=== PATIENT | female | born 1965 | race Caucasian/White ===

== ENCOUNTER 2016-03-08 15:01 | Day surgery (SDC) | payer MEDICAID ==
[~2016-03-08] VITALS: Ht 152.4 cm; Wt 68.0 kg
[~2016-03-08 15:01] MED LIST: ADVAIR DISKUS 21 DSK IH; ALBUTEROL-200 PUFFS/ IH; AMOXICILLIN AND1 TER PO; ATIVAN0.5 MG PO; ATIVAN1 M1 OR; ATIVAN2 MG PO; AUGMENTIN 875-1 EACH PO; AUGMENTIN1 TA2 PO; BACTRIM DS 8001 TA1 PO; BUDESONIDE0.5 MG/2 M IH; CIPRO 500MG TA500 MG PO; CLARITIN 10MG T10 MG PO; CLARITIN-D1 T12 PO; CLARITIN10 MG PO; DICLOFENAC 50MG50 MG PO; DICLOFENAC POTA50 MG PO; DUONEB 3 MG/3 ML3 ML IH; FLOVENT 11110 MCG/PU IH; HYDROCODONE-APA1 TA1 PO; KEFLEX 500MG.500 MG PO; LEVAQUIN 750 M750 MG PO; LEVAQUIN500 MG PO; LEXAPRO 10 MG T10 MG PO; MECLIZINE HYDRO25 MG PO; MEDROL 4MG. DOSE4 MG PO; MEDROL DOSEPAK4 MG PO; OMEPRAZOLE40 MG PO; POTASSIUM CHLO10 ME3 PO; PREDNISONE 20MG20 MG PO; PREDNISONE50 MG PO; PROAIR HFA0.09 MG/AC IH; SINGULAIR10 MG PO; STIOLTO RESPIMA1 SPR IH; SUCRALFATE 1GM T1 GM PO; TESSALON PERLE100 MG PO; TIZANIDINE4 MG NG; TRAMADOL 50MG T50 MG PO; TRAMADOL50 M1 PO; WALK5 XX; ZANAFLEX2 M1 PO; ZITHROMAX 250M250 MG PO; ZITHROMAX Z PA250 MG PO; ZITHROMAX Z-PA250 M1 PO; Zithromax500 MG PO
[2016-03-08 15:11] VITALS: BP 121/81
[2016-03-08] MEDS ORDERED: AZITHROMYCIN250 MG PO (15:20)
[2016-03-08 15:25] VITALS: BP 121/81
[2016-03-08 15:27] VITALS: BP 121/81
--- NOTE | 2016-03-08 15:34 | Procedure Note ---
Procedure detail Date of procedure: 03/08/16 Anesthesiologist: Ric melissa CRNA Complications: None Pre-procedure diagnosis: Myofascial pain syndrome lumbar paraspinal muscles bilaterally. Post-procedure diagnosis: Same. Indications for procedure: Patient's a very pleasant 50-year-old white female were treating her pain clinic for myofascial pain syndrome lumbar spine. She status post 2 rounds of lumbar paraspinous muscle trigger point injections. She reports 80 percent improvement terms her low back pain after receiving the injections. She describes her low back pain as constant, dull, achy at times. She rates her low back pain 6/10. Patient's an receiving another round of trigger point injections and lumbar paraspinous muscles prior to into the year. Patient presents today for another round of lumbar paraspinous muscle trigger point injections bilaterally. Procedure detail: Details of procedure is going to the patient. The patient taken to the procedure room where noninvasive monitors were placed including noninvasive blood pressure cuff as well as pulse oximeter. She was placed in the sitting position. The area of the lumbar spine was cleansed using chlorhexidine as a cleansing solution. Markers were placed at 3 separate locations on the paraspinous muscles in the lumbar region bilaterally. Using a solution of 0.25 percent Marcaine +1 percent lidocaine and 40 mg of Depo-Medrol 2 mL were injected at each marker site. Patient all the procedure without difficulty. There are no complications. Plan and disposition: Patient in follow-up [facility] pain clinic further evaluation. She was reevaluated 15 minutes postprocedure. Patient reports 75 percent improvement terms of her lumbar back pain. at [id number]
[2016-03-08 15:36] VITALS: BP 121/80
[2016-04-26] MEDS ORDERED: PREDNISONE 10MG10 MG PO (19:05)
[2016-04-26] MEDS ORDERED: DOXYCYCLINE HY100 M4 PO (19:05)
== END 2016-03-08 15:36 | disposition home or self-care (01) ==
LOC: PM 15:01
PROC: 3E0233Z Introduction of Anti-inflammatory into Muscle, Percutaneous Approach (ICD-10-PCS; principal; 2016-03-08)
PROC: 3E023BZ Introduction of Anesthetic Agent into Muscle, Percutaneous Approach (ICD-10-PCS; 2016-03-08)
DX: M60.88 Other myositis, other site (principal)
CPT/HCPCS: J1040

== ENCOUNTER → 2016-10-21 | Outpatient (CLI) | payer MEDICAID ==
[~2016-10-21] MED LIST changes: +AZITHROMYCIN250 MG PO; +DALIRESP500 MCG PO; +DELTASONE20 MG FT; +DOXYCYCLINE HY100 M4 PO; +PREDNISONE 10MG10 MG PO
--- NOTE | 2016-10-22 07:33 | RADIOLOGY REPORT PS360 ---
CT CHEST W/WO CONTRAST HISTORY: COPD,SHORTNESS OF BREATH ORDERING PHYSICIAN: Maureen Sotelo APRN PATIENT AGE: 51 years TECHNIQUE: Helical acquisition obtained without and following the intravenous administration of 75 mL of Isovue 370 .. Axial, sagittal, and coronal reformatted images are generated and reviewed. COMPARISON: 09/08/2015 FINDINGS: No mediastinal or hilar mass evident. There is there is mild thickening of the pericardium anteriorly not significantly changed. There are coronary artery calcifications. There are scattered calcified granulomas. Mild centrilobular emphysematous change/COPD. Scattered fibrotic/atelectatic changes are present. No lobar consolidation or collapse. No effusions. No central bronchial lesions evident. There are old bilateral rib fractures. Wedge compression changes involving T6 and T7 which have developed in the interval. Mild chronic wedge compression changes involving the upper lumbar spine. IMPRESSION: 1. COPD/mild centrilobular emphysematous change with scattered areas of pulmonary fibrosis and/or atelectasis slightly increased on the right. 2. Mild wedge compression changes of T6 and T7 which have developed in the interval. MRI may further evaluate if clinically warranted. 3. Coronary artery disease. 4. Old bilateral rib fractures
== END ==
LOC: RAD 09:18
DX: J44.9 Chronic obstructive pulmonary disease, unspecified (principal); R06.02 Shortness of breath
CPT/HCPCS: Q9967

== ENCOUNTER → 2016-12-06 | Day surgery (SDC) | payer MEDICAID ==
[~2016-12-06] VITALS: Ht 152.4 cm; Wt 68.0 kg
[2016-12-06 15:44] VITALS: BP 112/78
[2016-12-06 16:15] VITALS: BP 112/78
[2016-12-06 16:17] VITALS: BP 112/78
[2016-12-06 16:24] VITALS: BP 118/75
--- NOTE | 2016-12-06 16:29 | Procedure Note ---
Procedure detail Date of procedure: 12/06/16 Anesthesiologist: Ric Clark Complications: None Pre-procedure diagnosis: Myofascial pain syndrome. Thoracic paraspinous muscles bilaterally. Post-procedure diagnosis: Same. Indications for procedure: Very pleasant 51-year-old white female that we've been treating for myofascial pain syndrome for quite some time in the lumbar and thoracic spine. Today she presents to the procedure area for trigger point injections of the thoracic paraspinous muscles bilaterally. Procedure detail: Details of the procedure expected the patient. Patient taken to procedure room placed in the sitting position. Noninvasive monitors were applied including noninvasive blood pressure cuff as well as Pulsoxymeter. The area over the thoracic spine was cleansed using chlorhexidine as cleansing solution. 3 separate markers were placed on the bilateral thoracic paraspinous muscles. Using a 22-gauge needle to muscle was injected with 2 mL at each marker using a solution containing 0.5 percent Marcaine and 1 percent lidocaine and 40 mg Depo- Medrol. Plan and disposition: Patient was reevaluated 10 minutes post procedure. She is doing very well. She is reporting little pain in the thoracic spine area. She will return to see us for further evaluation. at [id number]
== END ==
LOC: PM 15:04
PROC: 3E0233Z Introduction of Anti-inflammatory into Muscle, Percutaneous Approach (ICD-10-PCS; principal; 2016-12-06)
PROC: 3E023BZ Introduction of Anesthetic Agent into Muscle, Percutaneous Approach (ICD-10-PCS; 2016-12-06)
DX: M79.1 Myalgia (principal); M54.6 Pain in thoracic spine; M62.81 Muscle weakness (generalized)
CPT/HCPCS: J1040

== ENCOUNTER 2017-01-16 09:08 | Inpatient (IN) | payer MEDICAID ==
[~2017-01-16] VITALS: Ht 152.4 cm; Wt 63.5 kg
[2017-01-16] VITALS (7 sets, daily range): BP systolic 119–154; BP diastolic 68–108
--- OUTSIDE RECORDS SUMMARY | 2017-01-16 09:23 | External Medical Summary Rpt | CCD ---
Author Author , CAROL MEDINA Address Unknown Phone [email or web address] ([email or web address]) Care Team Providers Care Setter Induction Heating Equipment Name Role Phone Felicity Ackerman MD, Unavailable Unavailable Felicity Damico MD, Unavailable Unavailable Vinny Damico MD Purpose Continuity of Care Document - 10-30-2012 through 2016 Problems Code Diagnosis DOS Provider Status 305.1 305.1 03-07-2013 [place] TOBACCO USE [facility] 466.19 466.19 AC 03-07-2013 [place] [facility] INFEC Hospital ORG 491.21 491.21 03-07-2013 [facility] CHRONIC Hospital BRONCHITIS, W (ACUTE) EXACERBATIO N 300.00 300.00 10-30-2012 [place] ANXIETY [facility] STATE NOS Hospital 493.90 493.90 10-30-2012 [place] ASTHMA, [facility] UNSPECIFIED Hospital 496 496 CHR 10-30-2012 [place] AIRWAY [facility] NEC 786.09 786.09 10-30-2012 [place] RESPIRATORY [facility] ABNORM NEC Hospital J44.1 CHRONIC OBSTRUCTIVE PULMONARY DISEASE W (ACUTE) EXACERBATIO N J45.909 UNSPECIFIED ASTHMA, UNCOMPLICAT ED R07.9 CHEST PAIN, UNSPECIFIED Allergies, Adverse Reactions, Alerts Type Drug Allergy Propensity to adverse reactions to drug Adverse Reaction to Substance Substance Reaction Severity ASA (aspirin) I-HIVES Unknown Clarithromycin NA-NAUSEA Unknown Theophylline FREAKS OUT Intermediate Medications Na ND Rx Da Fi Fi Am Da Di Ph RX Ph St me C No te ll ll ou ys ag ar # ys at rm s nt no ma ic us Or Da si cy ia de te s n re d FA 51 12 2 No MO 07 -3 TI 90 1- Lo DI 96 20 ng NE 62 13 er 0 20 Ac ti MG ve TA BL ET PA 00 12 2 No ED 05 -3 NI 40 1- Lo SO 01 20 ng NE 72 13 er 0 10 Ac ti MG ve TA BL ET IS 00 12 0 No OV 27 -3 UE 01 0- Lo -3 31 20 ng 70 65 13 er 2 76 Ac % ti IN ve FU S JAMAL TT LE RA 63 12 0 No D- 80 -3 SA 70 0- Lo LI 10 20 ng NE 07 13 er 5A FL Ac US ti H ve 10 ML SY RI NG E SO 00 12 1 No JENNIFER 00 -3 -M 90 0- Lo ED 04 20 ng RO 72 13 er L 2 12 Ac 5 ti MG ve AL Fl 00 12 3 No ut 17 -3 ic 30 0- Lo as 71 20 ng on 92 13 er e 0B Hf Ac a ti 11 ve 0M CG In gómez le r AZ 68 12 4 No IT 08 -2 HR 40 9- Lo OM 27 20 ng YC 80 13 er IN 1 Ac 25 ti 0 ve MG TA BL ET LO 00 12 4 No VE 07 -2 NO 50 9- Lo X 62 20 ng 40 04 13 er 1 MG Ac /0 ti .4 ve ML SY RI NG E CE 00 12 1 No FT 40 -2 RI 97 9- Lo AX 33 20 ng ON 30 13 er E 4 1 Ac GM ti ve AL SO 00 12 1 No DI 40 -2 UM 97 9- Lo 10 20 ng CH 16 13 er LO 6 RI Ac DE ti ve 0. 9% SO LN IP 00 12 5 No RA 48 -2 T- 70 8- Lo AL 20 20 ng BU 10 13 er T 1 0. Ac 5- ti 3( ve 2. 5) MG /3 ML SO 00 12 2 No JENNIFER 00 -2 -M 90 8- Lo ED 04 20 ng RO 72 13 er L 2 12 Ac 5 ti MG ve AL Ib 62 12 5 No up 58 -2 ro 40 8- Lo fe 74 20 ng n 60 13 er 40 1 0M Ac G ti Ta ve bl et SO 00 12 1 No JENNIFER 00 -2 -M 90 7- Lo ED 04 20 ng RO 72 13 er L 2 12 Ac 5 ti MG ve AL AC 00 12 2 No ET 57 -2 YL 40 7- Lo CY [address] 50 13 er EI 0A NE Ac ti 20 ve % 1M L SY R (R T ON 00 12 7 No DA 37 -2 NS 87 6- Lo ET 73 20 ng RO 29 13 er N 3 OD Ac T ti 4 ve MG TA BL ET SO 00 12 1 No JENNIFER 00 -2 -M 90 6- Lo ED 04 20 ng RO 72 13 er L 2 12 Ac 5 ti MG ve AL SO 00 12 0 No DI 40 -2 UM 97 5- Lo 98 20 ng CH 30 13 er LO 9 RI Ac DE ti ve 0. 9% SO JENNIFER TI ON IP 00 12 0 No RA 48 -2 T- 70 5- Lo AL 20 20 ng BU 10 13 er T 1 0. Ac 5- ti 3( ve 2. 5) MG /3 ML Sa 63 12 1 No li 80 -2 ne 70 5- Lo 10 20 ng Fl 07 13 er us 5 h Ac 10 ti ML ve Sy ri ng e SO 00 12 0 No JENNIFER 00 -2 -M 90 5- Lo ED 04 20 ng RO 72 13 er L 2 12 Ac 5 ti MG ve AL LO 00 12 0 No RA 64 -2 ZE 16 5- Lo PA 04 20 ng M 82 13 er 2 5 MG Ac /M ti L ve AL AL 00 12 0 No BU 48 -2 TE 79 5- Lo RO 50 20 ng L 10 13 er CANTU 1 L Ac 2. ti 5 ve MG /[address] 00 12 8 No AI 12 -2 FE 10 5- Lo NE 63 20 ng SI 81 13 er N 0 DM Ac ti SY ve RU P Lo 63 12 8 No ra 73 -2 ze 90 5- Lo pa 15 20 ng m 51 13 er 1M 0 G Ac Ta ti bl ve et PU 00 12 6 No LM 18 -2 IC 61 5- Lo OR 98 20 ng T 90 13 er 0. 4 5 Ac MG ti /2 ve ML RE SP UL E TY 50 12 8 No LE 58 -2 NO 00 5- Lo L 45 20 ng EX 10 13 er -S 3 TR Ac ti 50 [address] ET Sa 63 12 8 No li 80 -2 ne 70 5- Lo 10 20 ng Fl 07 13 er us 5 h Ac 10 ti ML ve Sy ri ng e LO 51 12 8 No RA 07 -2 TA 90 5- Lo DI 24 20 ng NE 62 13 er 0 10 Ac ti MG ve TA BL ET MO 68 12 8 No NT 08 -2 EL 40 5- Lo UK 62 20 ng 00 13 er T 1 SO Ac D ti 10 ve MG TA BL ET MA 00 12 0 No GN 40 -2 ES 96 5- Lo IU 73 20 ng M 01 13 er CANTU 3 LF Ac 4 ti ve G/ 50 ML BA G AZ 00 12 3 No IT 40 -2 HR 90 5- Lo OM 14 20 ng YC 41 13 er IN 1 Ac I. ti V. ve 50 0 MG AL De 00 12 0 No xa 51 -0 me 74 4- Lo th 90 20 ng as 12 13 er on 5 e Ac 4M ti G/ ve Ml Sd v AL 00 12 0 No BU 48 -0 TE 79 4- Lo RO 50 20 ng L 10 13 er CANTU 1 L Ac 2. ti 5 ve MG /[address] AL 00 08 0 No BU 48 -2 TE 79 7- Lo RO 50 20 ng L 10 13 er CANTU 1 L Ac 2. ti 5 ve MG /[address] PA 00 08 0 No ED 05 -2 NI 40 7- Lo SO 01 20 ng NE 82 13 er 0 20 Ac ti MG ve TA BL ET Vital Signs 03-07-2013 15:35 Name Value Interpretat Reference Comment ion Range Body 98.7 [degF] Temperature BP 68 mm[Hg] Diastolic BP Systolic 107 mm[Hg] Heart 78 /min Rate/Pulse O2% 94 % Respiratory 22 /min Rate 02-27-2013 06:13 Name Value Interpretat Reference Comment ion Range Height 152.40 cm Weight 61.462 kg Measured 02-27-2013 04:10 Name Value Interpretat Reference Comment ion Range Body 99.3 [degF] Temperature BP 92 mm[Hg] Diastolic BP Systolic 163 mm[Hg] Heart 141 /min Rate/Pulse O2% 98 % Respiratory 20 /min Rate Weight 0 [oz_av] Measured 02-06-2013 06:26 Name Value Interpretat Reference Comment ion Range Body 97.8 [degF] Temperature BP 66 mm[Hg] Diastolic BP Systolic 106 mm[Hg] Heart 89 /min Rate/Pulse O2% 91 % Respiratory 18 /min Rate 02-06-2013 06:22 Name Value Interpretat Reference Comment ion Range Body 97.8 [degF] Temperature 02-06-2013 05:47 Name Value Interpretat Reference Comment ion Range BP 78 mm[Hg] Diastolic BP Systolic 124 mm[Hg] Heart 99 /min Rate/Pulse O2% 98 % Respiratory 20 /min Rate 10-30-2012 03:40 Name Value Interpretat Reference Comment ion Range Body 98.6 [degF] Temperature BP 77 mm[Hg] Diastolic BP Systolic 112 mm[Hg] Heart 90 /min Rate/Pulse O2% 98 % Respiratory 20 /min Rate 10-30-2012 02:56 Name Value Interpretat Reference Comment ion Range BP 78 mm[Hg] Diastolic BP Systolic 131 mm[Hg] Heart 89 /min Rate/Pulse O2% 94 % Respiratory 20 /min Rate Results Labs Lab Lab Date Result Refere Interp Status Commen Order Detail nces retati t Range on Differential panel, method unspecified - (08-02-2016 21:00) Anisocy 1+ complet tosis 017 ed [Presen 21:00 ce] in Blood LYMPH 9 % 10% - Low complet 017 50% ed 21:00 Platele NORMAL complet ts 017 ed [Presen 21:00 ce] in Blood by Light microsc opy Differential panel, method unspecified - (07-22-2016 10:15) Anisocy 07-22- 1+ complet tosis 017 ed [Presen 10:15 ce] in Blood LYMPH 23 % 10% - Normal complet 017 50% ed 10:15 Platele NORMAL complet ts 017 ed [Presen 10:15 ce] in Blood by Light microsc opy Stomato 1+ complet cytes 017 ed [Presen 10:15 ce] in Blood by Light microsc opy BUN Bld-mCnc (03-04-2013 07:40) BUN 16 7-18 complet Bld-mCn 013 mg/dL ed c 07:40 CREATININE (03-04-2013 07:40) Creat 0.7 0.6-1.0 complet SerPl-m 013 mg/dL ed Cnc 07:40 Creat 97 50-200 complet Cl 013 ML/MIN ed predict 07:40 ed SerPl C-G-vRa te GFR/BSA 90 59- complet .pred 013 ML/MIN ed SerPl 07:40 Schwart z-vRate CBC with AUTO DIFF (03-04-2013 07:40) WBC # 03-04- 9.4 4.8-10. complet Bld 013 K/MM3 8 ed Auto 07:40 RBC # 12-30-2 4.36 4.2-5.4 complet Bld 013 M/mm3 ed Auto 07:40 Hgb 12-30-2 13.2 12.2-16 complet Bld-mCn 013 g/dL .2 ed c 07:40 Hct Fr 12-30-2 40.3 % 37.0-47 complet Bld 013 .0 ed 07:40 MCV RBC 12-30-2 92.3 fl 82.2-97 complet 013 .8 ed 07:40 MCH RBC 12-30-2 30.4 pg 27-31.2 complet Qn 013 ed Auto 07:40 MEAN 12-30-2 32.9 31.8-35 complet CORPUSC 013 g/dl .4 ed ULAR 07:40 HGB CONC RDW RBC 12-30-2 13.2 % 11.5-17 complet Auto 013 .5 ed 07:40 Platele 12-30-2 298 142-424 complet t Bld 013 K/mm3 ed Ql 07:40 Manual MEAN 12-30-2 7.7 fl 7.4-10. complet PLATELE 013 4 ed T 07:40 VOLUME Granulo 12-30-2 82.6 % 37.0-80 complet cytes 013 .0 ed Fr Bld 07:40 Auto LYMPH % 12-30-2 12.2 % 10-50.0 complet 013 ed 07:40 Monocyt 12-30-2 4.8 % 1.7-9.3 complet es Fr 013 ed Bld 07:40 Auto Eosinop 12-30-2 0.2 % 0.1-12. complet hil Fr 013 0 ed Bld 07:40 Auto Basophi 12-30-2 0.2 % 0.1-2.0 complet ls Fr 013 ed Bld 07:40 Auto Granulo 12-30-2 7.7 1.8-7.8 complet cytes # 013 K/mm3 ed Bld 07:40 Auto Lymphoc 12-30-2 1.1 0.7-4.5 complet ytes Fr 013 K/mm3 ed Bld 07:40 Auto Monocyt 12-30-2 0.5 0.1-1.0 complet es # 013 K/mm3 ed Bld 07:40 Auto Eosinop 12-30-2 0.0 0.0-0.4 complet hil # 013 K/mm3 ed Bld 07:40 Auto Basophi 12-30-2 0.0 0-0.2 complet ls # 013 K/MM3 ed Bld 07:40 Auto ARTERIAL BLOOD GAS (03-02-2013 08:52) ARTERIA 7.37 7.35-7. complet L PH 013 MMOL/L 45 ed 08:52 ARTERIA 69.5 35.0-45 complet L PCO2 013 MMHG .0 ed 08:52 ARTERIA 2 60.7 80-100 complet L PO2 013 MMHG ed 08:52 ARTERIA 2 39.1 22.0-26 complet L HCO3 013 MMOL/L .0 ed 08:52 ARTERIA 41.2 23-27 complet L TCO2 013 MMOL/L ed 08:52 Base 13.8 -2.4-+2 complet excess 013 MMOL/L .3 ed BldA-sC 08:52 nc ARTERIA 90.3 % 90-100 complet L O2 013 ed SAT 08:52 OXYGEN 34% complet 013 ed 08:52 Arteria ACCEPTA complet l 013 BLE ed patency 08:52 Wrist a CBC with AUTO DIFF (02-27-2013 08:20) WBC # 02-27-2 9.6 4.8-10. complet Bld 013 K/MM3 8 ed Auto 08:20 WBC 02-27-2 9.5 complet nRBC 013 K/mm3 ed cor # 08:20 Bld Auto RBC # 2 4.26 4.2-5.4 complet Bld 013 M/mm3 ed Auto 08:20 Hgb 2 13.1 12.2-16 complet Bld-mCn 013 g/dL .2 ed c 08:20 Hct Fr 40.0 % 37.0-47 complet Bld 013 .0 ed 08:20 MCV RBC 93.9 fl 82.2-97 complet 013 .8 ed 08:20 MCH RBC 30.6 pg 27-31.2 complet Qn 013 ed Auto 08:20 MEAN 32.6 31.8-35 complet CORPUSC 013 g/dl .4 ed ULAR 08:20 HGB CONC RDW RBC 12-25-2 13.3 % 11.5-17 complet Auto 013 .5 ed 08:20 Platele 12-25-2 221 142-424 complet t Bld 013 K/mm3 ed Ql 08:20 Manual MEAN 25-2 8.3 fl 7.4-10. complet PLATELE 013 4 ed T 08:20 VOLUME Granulo 12-25-2 92.3 % 37.0-80 complet cytes 013 .0 ed Fr Bld 08:20 Auto LYMPH % 12-25-2 4.3 % 10-50.0 complet 013 ed 08:20 Monocyt 12-25-2 3.3 % 1.7-9.3 complet es Fr 013 ed Bld 08:20 Auto Eosinop 12-25-2 0.1 % 0.1-12. complet hil Fr 013 0 ed Bld 08:20 Auto Basophi 12-25-2 0.1 % 0.1-2.0 complet ls Fr 013 ed Bld 08:20 Auto Granulo 12-25-2 8.8 1.8-7.8 complet cytes # 013 K/mm3 ed Bld 08:20 Auto Lymphoc 12-25-2 0.4 0.7-4.5 complet ytes Fr 013 K/mm3 ed Bld 08:20 Auto Monocyt 12-25-2 0.3 0.1-1.0 complet es # 013 K/mm3 ed Bld 08:20 Auto Eosinop 12-25-2 0.0 0.0-0.4 complet hil # 013 K/mm3 ed Bld 08:20 Auto Basophi 12-25-2 0.0 0-0.2 complet ls # 013 K/MM3 ed Bld 08:20 Auto Encounters Encounter Start End Date Code Location Performer Type Date Inpatient SEBASTIEN Ackerman MD (IN) 3 04:27 4 17:00 [facility] Emergency LEEROY Collier MD (ER) 3 04:45 3 06:25 [facility] Emergency LEEROY Ackerman MD (ER) 3 02:29 3 03:53 [facility]
--- OUTSIDE RECORDS SUMMARY | 2017-01-16 09:23 | External Medical Summary Rpt | CCD ---
Author Author , CAROL MEDINA Address Unknown Phone .[facility] Care Team Providers Care Winder Hand Name Role Phone Felicity Ackerman MD, Unavailable Unavailable Felicity Damico MD, Unavailable Unavailable Vinny Damico MD Purpose Continuity of Care Document - 10-30-2012 through 2016 Problems Code Diagnosis DOS Provider Status 305.1 305.1 03-07-2013 [place] TOBACCO USE [facility] 466.19 466.19 AC 03-07-2013 [place] [facility]EC Hospital ORG 491.21 491.21 03-07-2013 [facility] CHRONIC Hospital BRONCHITIS, W (ACUTE) EXACERBATIO N 300.00 300.00 10-30-2012 [place] ANXIETY [facility] STATE NOS Hospital 493.90 493.90 10-30-2012 [place] ASTHMA, [facility] UNSPECIFIED Hospital 496 496 CHR 10-30-2012 [place] AIRWAY [facility] Hospital NEC 786.09 786.09 10-30-2012 [place] RESPIRATORY [facility] ABNORM NEC Hospital J44.1 CHRONIC OBSTRUCTIVE PULMONARY [...] Ac ti MG ve TA BL ET FL 00 12 2 No ED 05 -3 [...] 5 ve MG /[address] FL 00 08 0 No ED 05 -2 [...] Ackerman MD (IN) 3 04:27 4 17:00 [facility] Emergency LEEROY Collier MD (ER) 3 04:45 3 06:25 [facility] Emergency LEEROY Ackerman MD (ER) 3 02:29 3 03:53 [facility]
--- OUTSIDE RECORDS SUMMARY | 2017-01-16 09:24 | External Medical Summary Rpt | CCD ---
Author Author [employer] Organization [employer] Address Unknown Phone Unavailable Purpose Continuity of Care Document - through 2016
--- OUTSIDE RECORDS SUMMARY | 2017-01-16 09:24 | External Medical Summary Rpt | CCD ---
Author Author , CAROL Organization CAROL Address Unknown Phone [email or web address] Immunization Name Date Rout CVX Reac Dose Comm Prov Is Faci e tion ent ider Refu lity Give sed n Td 03-0 9 999 Hist H149 No H149 (melody 5-19 oric lt), 97 al Info adso rmat rbed ion - Sour ce Unsp ecif ied
--- OUTSIDE RECORDS SUMMARY | 2017-01-16 09:24 | External Medical Summary Rpt ---
Author Author CAROL Colunga, CAROL [employer] Address Unknown Phone Unavailable Results DIARRHEA PANEL,PCR Observa Value Referen Units Interpr Notes Date tion ce etation Range Adenovi NOT NOT No No No Florentino 2 getachew DETECTE DETECTE informa informa informa 2017 40+41 D tion in tion in tion in 8:00 AM Ag source source source [Presen data data data ce] in Stool Aeromon NOT NOT No No No Florentino 2 as DETECTE DETECTE informa informa informa 2016 salmoni D tion in tion in tion in 8:00 AM eleni source source source [Presen data data data ce] in Unspeci fied specime n Astrovi NOT NOT No No No Florentino 2 getachew DETECTE DETECTE informa informa informa 2017 [Presen D tion in tion in tion in 8:00 AM ce] in source source source Stool data data data by Electro n microsc opy Campylo NOT NOT No No No Flroentino 2 bacter DETECTE DETECTE informa informa informa 2016 sp Ab D tion in tion in tion in 8:00 AM [Presen source source source ce] in data data data Serum Clostri NOT NOT No No No Florentino 2 dium DETECTE DETECTE informa informa informa 2017 diffici D tion in tion in tion in 8:00 AM le source source source toxin data data data A+B [Presen ce] in Stool Cryptos NOT NOT No No No Florentino 2 poridiu DETECTE DETECTE informa informa informa 2017 m sp Ag D tion in tion in tion in 8:00 AM source source source [Presen data data data ce] in Unspeci fied specime n Cyclosp NOT NOT No No No Florentino 2 ora DETECTE DETECTE informa informa informa 2017 cayetan D tion in tion in tion in 8:00 AM ami source source source [Presen data data data ce] in Unspeci fied specime n Escheri NOT NOT No No No Florentino 2 florentino DETECTE DETECTE informa informa informa 2017 coli D tion in tion in tion in 8:00 AM [Presen source source source ce] in data data data Unspeci fied specime n by Culture FDA method Escheri NOT NOT No No No Florentino 2 florentino DETECTE DETECTE informa informa informa 2017 coli D tion in tion in tion in 8:00 AM [Presen source source source ce] in data data data Unspeci fied specime n by Culture FDA method Escheri NOT NOT No No No Florentino 2 florentino DETECTE DETECTE informa informa informa 2017 coli D tion in tion in tion in 8:00 AM Shiga-l source source source cristhian data data data toxin 1 assa Escheri NOT NOT No No No Florentino 2 florentino DETECTE DETECTE informa informa informa 2016 coli D tion in tion in tion in 8:00 AM O157:[id number] source source source data data data [Presen ce] in Stool by Organis m specifi c culture Entamoe NOT NOT No No No Florentino 2 ba DETECTE DETECTE informa informa informa 2017 histoly D tion in tion in tion in 8:00 AM jevon source source source [Presen data data data ce] in Stool by Trichro me stain Giardia NOT NOT No No No Florentino 2 DETECTE DETECTE informa informa informa 2017 lamblia D tion in tion in tion in 8:00 AM Ag source source source [Presen data data data ce] in Stool Norovir NOT NOT No No No Florentino 2 us Ag DETECTE DETECTE informa informa informa 2016 [Presen D tion in tion in tion in 8:00 AM ce] in source source source Stool data data data Stool NOT NOT No No No Florentino 2 Plesiom DETECTE DETECTE informa informa informa 2017 onas D tion in tion in tion in 8:00 AM shigell source source source oides data data data DNA detec Rotavir NOT NOT No No No Florentino 2 us RNA DETECTE DETECTE informa informa informa 2017 detecti D tion in tion in tion in 8:00 AM on by source source source probe data data data and tar Salmone NOT NOT No No No Florentino 2 lla sp DETECTE DETECTE informa informa informa 2017 DNA D tion in tion in tion in 8:00 AM [Identi source source source fier] data data data in Unspeci fied specime n by Probe & target amplifi cation method Caliciv NOT NOT No No No Florentino 2 irus DETECTE DETECTE informa informa informa 2017 [Identi D tion in tion in tion in 8:00 AM fier] source source source in data data data Stool by Electro n microsc opy Escheri NOT NOT No No No Florentino 2 florentino DETECTE DETECTE informa informa informa 2017 coli D tion in tion in tion in 8:00 AM [Presen source source source ce] in data data data Unspeci fied specime n by Culture FDA method Escheri NOT NOT No No No Florentino 2 florentino DETECTE DETECTE informa informa informa 2017 coli D tion in tion in tion in 8:00 AM SXT source source source gene+H7 data data data gene [Identi fier] in Unspeci fied specime n by Probe & target amplifi cation method Vibrio NOT NOT No No No Florentino 2 cholera DETECTE DETECTE informa informa informa 2017 e DNA D tion in tion in tion in 8:00 AM [Presen source source source ce] in data data data Unspeci fied specime n by Probe & target amplifi cation method Vibrio NOT NOT No No No Florentino 2 sp DNA DETECTE DETECTE informa informa informa 2016 [Identi D tion in tion in tion in 8:00 AM fier] source source source in data data data Unspeci fied specime n by Probe & target amplifi cation method Vibrio NOT NOT No No No Florentino 2 sp DETECTE DETECTE informa informa informa 2017 identif D tion in tion in tion in 8:00 AM ied in source source source Stool data data data by Organis m specifi c culture CBC W Auto Differential panel in Blood Observa Value Referen Units Interpr Notes Date tion ce etation Range Basophils 0 - 0.2 K/MM3 Normal No August 03 informati 2016 6:10 [#/volume on in AM ] in source Blood by data Automated count Basophils 0.1 - 2.0 % Normal No May 31 /100 informati 2017 6:10 leukocyte on in AM s in source Blood by data Automated count Eosinophi 0.0 - 0.4 K/mm3 Normal No August 03 ls informati 2016 6:10 [#/volume on in AM ] in source Blood by data Automated count Eosinophi 0.1 - % Low No August 03 ls/100 12.0 informati 2016 6:10 leukocyte on in AM s in source Blood by data Automated count Granulocy 1.8 - 7.8 K/mm3 High No August 03 melinda informati 2016 6:10 [#/volume on in AM ] in source Blood by data Automated count Granulocy 37.0 - % High No August 03 melinda/100 80.0 informati 2016 6:10 leukocyte on in AM s in source Blood by data Automated count Hematocri 37.0 - % Normal No August 03 t [Volume 47.0 informati 2016 6:10 on in AM Fraction] source of Blood data Hemoglobi 12.2 - g/dL Normal No August 03 n 16.2 informati 2016 6:10 [Mass/vol on in AM ume] in source Blood data Lymphocyt 0.7 - 4.5 K/mm3 Normal No August 03 es informati 2016 6:10 [#/volume on in AM ] in source Unspecifi data ed specimen by Automated count Lymphocyt 10 - 50.0 % Low No August 03 es informati 2016 6:10 [#/volume on in AM ] in source Unspecifi data ed specimen by Automated count Erythrocy 27 - 31.2 pg Normal No August 03 te mean informati 2017 6:10 corpuscul on in AM ar source hemoglobi data n [Entitic mass] Erythrocy 31.8 - g/dl Normal No August 03 te mean 35.4 informati 2016 6:10 corpuscul on in AM ar source hemoglobi data n concentra tion [Mass/vol ume] by Automated count Erythrocy 82.2 - fl Normal No August 03 te mean 97.8 informati 2016 6:10 corpuscul on in AM ar volume source [Entitic data volume] by Automated count Monocytes 0.1 - 1.0 K/mm3 Normal No August 03 informati 2016 6:10 [#/volume on in AM ] in source Blood by data Automated count Monocytes 1.7 - 9.3 % Low No August 03 informati 2017 6:10 leukocyte on in AM s in source Blood by data Automated count Platelet 7.4 - fl Low No August 03 mean 10.4 informati 2017 6:10 volume on in AM [Entitic source volume] data in Blood by Automated count Platelets 142 - 424 K/mm3 Normal No August 03 informati 2017 6:10 [#/volume on in AM ] in source Blood data Erythrocy 4.2 - 5.4 M/mm3 Normal No August 03 melinda informati 2016 6:10 [#/volume on in AM ] in source Amniotic data fluid Erythrocy 11.5 - % Normal No August 03 te 17.5 informati 2017 6:10 distribut on in AM ion width source [Entitic data volume] by Automated count Leukocyte 4.8 - K/MM3 High No August 03 s 10.8 informati 2016 6:10 [#/volume on in AM ] in source Blood data Lactate [Moles/volume] in Serum or Plasma Observa Value Referen Units Interpr Notes Date tion ce etation Range Lactate 0.4 - 2.0 MMOL/L High An August 03 [Moles/vo elevated 2017 1:06 lume] in Lactic AM Serum or Acid is Plasma suggestiv e of sepsis and shouldbe repeated within 6 hours of initial testing. CBC W Auto Differential panel in Blood Observa Value Referen Units Interpr Notes Date tion ce etation Range Basophils 0 - 0.2 K/MM3 Normal No August 02 informati 2016 9:00 [#/volume on in PM ] in source Blood by data Automated count Basophils 0.1 - 2.0 % Normal No August 02 informati 2016 9:00 leukocyte on in PM s in source Blood by data Automated count Eosinophi 0.0 - 0.4 K/mm3 Normal No August 02 ls informati 2016 9:00 [#/volume on in PM ] in source Blood by data Automated count Eosinophi 0.1 - % Normal No August 02 ls/100 12.0 informati 2016 9:00 leukocyte on in PM s in source Blood by data Automated count Granulocy 1.8 - 7.8 K/mm3 High No August 02 melinda informati 2016 9:00 [#/volume on in PM ] in source Blood by data Automated count Granulocy 37.0 - % High No August 02 melinda/100 80.0 informati 2016 9:00 leukocyte on in PM s in source Blood by data Automated count Hematocri 37.0 - % Normal No August 02 t [Volume 47.0 informati 2016 9:00 on in PM Fraction] source of Blood data Hemoglobi 12.2 - g/dL Normal No August 02 n 16.2 informati 2016 9:00 [Mass/vol on in PM ume] in source Blood data Lymphocyt 0.7 - 4.5 K/mm3 Normal No August 02 es informati 2016 9:00 [#/volume on in PM ] in source Unspecifi data ed specimen by Automated count Lymphocyt 10 - 50.0 % Normal No August 02 es informati 2016 9:00 [#/volume on in PM ] in source Unspecifi data ed specimen by Automated count Erythrocy 27 - 31.2 pg Normal No August 02 te mean informati 2016 9:00 corpuscul on in PM ar source hemoglobi data n [Entitic mass] Erythrocy 31.8 - g/dl Normal No August 02 te mean 35.4 informati 2016 9:00 corpuscul on in PM ar source hemoglobi data n concentra tion [Mass/vol ume] by Automated count Erythrocy 82.2 - fl Normal No August 02 te mean 97.8 informati 2016 9:00 corpuscul on in PM ar volume source [Entitic data volume] by Automated count Monocytes 0.1 - 1.0 K/mm3 Normal No August 02 informati 2016 9:00 [#/volume on in PM ] in source Blood by data Automated count Monocytes 1.7 - 9.3 % Normal No August 02 /100 informati 2016 9:00 leukocyte on in PM s in source Blood by data Automated count Platelet 7.4 - fl Low No August 02 mean 10.4 informati 2016 9:00 volume on in PM [Entitic source volume] data in Blood by Automated count Platelets 142 - 424 K/mm3 Normal No August 02 informati 2016 9:00 [#/volume on in PM ] in source Blood data Erythrocy 4.2 - 5.4 M/mm3 Normal No August 02 melinda informati 2016 9:00 [#/volume on in PM ] in source Amniotic data fluid Erythrocy 11.5 - % Normal No August 02 te 17.5 informati 2016 9:00 distribut on in PM ion width source [Entitic data volume] by Automated count Leukocyte 4.8 - K/MM3 High No August 02 s 10.8 informati 2016 9:00 [#/volume on in PM ] in source Blood data Differential panel, method unspecified - Observa Value Referen Units Interpr Notes Date ti etation Range Anisocy 1+ No No No No August 02 tosis informa informa informa informa 2016 [Presen tion in tion in tion in tion in 9:00 PM ce] in source source source source Blood data data data data Eosinophi 0 - 3 % Normal No August 02 ls/100 informati 2016 9:00 leukocyte on in PM s in source Blood by data Manual count LYMPH 9 10 - 50 % Low No August 02 inform2016 tion in 9:00 PM source data Platele NORMAL No No No No August 02 ts informa informa informa informa 2016 [Presen tion in tion in tion in tion in 9:00 PM ce] in source source source source Blood data data data data by Light microsc opy Neutrophi 42 - 76 % High No August 02 ls informati 2016 9:00 [#/volume on in PM ] in source Blood by data Automated count Cells No #CELLS No No August 02 Counted informati informati informati 2016 9:00 Total [#] on in on in on in PM in Blood source source source data data data Lactate [Moles/volume] in Blood Observa Value Referen Units Interpr Notes etation Range Lactate 0.4 - 2.0 mmol/L High An August 02 [Moles/vo elevated 2016 9:00 lume] in Lactic PM Blood Acid is suggestiv e of sepsis and shouldbe repeated within 6 hours of initial testing. Lactate [Moles/volume] in Serum or Plasma Observa Value Referen Units Interpr Notes Date etation Range Lactate 0.4 - 2.0 MMOL/L High An August 02 [Moles/vo elevated 2016 1:06 lume] in Lactic AM Serum or Acid is Plasma suggestiv e of sepsis and shouldbe repeated within 6 hours of initial testing. Lactate [Moles/volume] in Serum or Plasma Observa Value Referen Units Interpr Notes Date etation Range Lactate 0.4 - 2.0 MMOL/L High An July 30 [Moles/vo elevated 2016 1:06 lume] in Lactic AM Serum or Acid is Plasma suggestiv e of sepsis and shouldbe repeated within 6 hours of initial testing. CBC W Auto Differential panel in Blood Observa Value Referen Units Interpr Notes Date tion ce etation Range Basophils 0 - 0.2 K/MM3 Normal No July 22 inform2016 [#/volume on in 10:15 AM ] in source Blood by data Automated count Basophils 0.1 - 2.0 % Normal No July 22 / inform2016 leukocyte on in 10:15 AM s in source Blood by data Automated count Eosinophi 0.0 - 0.4 K/mm3 Normal No July 22 ls informati 2016 [#/volume on in 10:15 AM ] in source Blood by data Automated count Eosinophi 0.1 - % Normal No July 22 ls/100 12.0 inform2016 leukocyte on in 10:15 AM s in source Blood by data Automated count Granulocy 1.8 - 7.8 K/mm3 High No July 22 melinda inform2016 [#/volume on in 10:15 AM ] in source Blood by data Automated count Granulocy 37.0 - % Normal No July 22 melinda/100 80.0 2016 leukocyte on in 10:15 AM s in source Blood by data Automated count Hematocri 37.0 - % Normal No July 22 t [Volume 47.0 ati 2016 on in 10:15 AM Fraction] source of Blood data Hemoglobi 12.2 - g/dL Normal July 22 n 16.2 inform2016 [Mass/vol on in 10:15 AM ume] in source Blood data Lymphocyt 0.7 - 4.5 K/mm3 Normal July 22 es informati 2016 [#/volume on in 10:15 AM ] in source Unspecifi data ed specimen by Automated count Lymphocyt 10 - 50.0 % Normal No July 22 es informati 2016 [#/volume on in 10:15 AM ] in source Unspecifi data ed specimen by Automated count Erythrocy 27 - 31.2 pg Normal No July 22 te mean 2016 corpuscul on in 10:15 AM ar source hemoglobi data n [Entitic mass] Erythrocy 31.8 - g/dl Normal July 22 te mean 35.4 2016 corpuscul on in 10:15 AM ar source hemoglobi data n concentra tion [Mass/vol ume] by Automated count Erythrocy 82.2 - fl Normal No July 22 te mean 97.8 inform2016 corpuscul on in 10:15 AM ar volume source [Entitic data volume] by Automated count Monocytes 0.1 - 1.0 K/mm3 Normal No July 22 inform2016 [#/volume on in 10:15 AM ] in source Blood by data Automated count Monocytes 1.7 - 9.3 % Normal No July 222016 leukocyte on in 10:15 AM s in source Blood by data Automated count Platelet 7.4 - fl Low July 22 mean 10.4 inform2016 volume on in 10:15 AM [Entitic source volume] data in Blood by Automated count Platelets 142 - 424 K/mm3 No July 22 informati informati 2016 [#/volume on in on in 10:15 AM ] in source source Blood data data Erythrocy 4.2 - 5.4 M/mm3 Normal No July 22 melinda 2016 [#/volume on in 10:15 AM ] in source Amniotic data fluid Erythrocy 11.5 - % Normal July 22 te 17.5 2016 distribut on in 10:15 AM ion width source [Entitic data volume] by Automated count Leukocyte 4.8 - K/MM3 High No July 22 s 10.8 2016 [#/volume on in 10:15 AM ] in source Blood data Differential panel, method unspecified - Observa Value Referen Units Interpr Notes Date tion ce etation Range Anisocy 1+ No No No No July 22 tosis informa informa informa informa 2016 [Presen tion in tion in tion in tion in 10:15 ce] in source source source source AM Blood data data data data LYMPH 23 10 - 50 % Normal No July 222016 tion in 10:15 source AM data Monocytes 2 - 9 % Normal No July 222016 leukocyte on in 10:15 AM s in source Blood by data Automated count Platele NORMAL No No No No July 22 ts informa informa informa informa 2016 [Presen tion in tion in tion in tion in 10:15 ce] in source source source source AM Blood data data data data by Light microsc opy Neutrophi 42 - 76 % Normal No July 22 ls 2016 [#/volume on in 10:15 AM ] in source Blood by data Automated count Stomato 1+ No No No No July 22 cytes informa informa informa informa 2017 [Presen tion in tion in tion in tion in 10:15 ce] in source source source source AM Blood data data data data by Light microsc opy Cells No #CELLS No No July 22 Counted informati informati informati 2016 Total [#] on in on in on in 10:15 AM in Blood source source source data data data Lactate [Moles/volume] in Blood Observa Value Referen Units Interpr Notes Date tion ce etation Range Lactate 0.4 - 2.0 mmol/L High An July 22 [Moles/vo elevated 2017 lume] in Lactic 10:15 AM Blood Acid is suggestiv e of sepsis and shouldbe repeated within 6 hours of initial testing. Comprehensive metabolic 2000 panel in Serum or Plasma Observa Value Referen Units Interpr Notes Date ti ce etation Range Albumin/G 1.1 - 1.8 No Low No July 22 lobulin informati informati 2016 [Mass on in on in 10:15 AM ratio] in source source Serum or data data Plasma Albumin 3.4 - 5.0 gm/dL Normal No July 22 [Mass/vol informati 2016 ume] in on in 10:15 AM Serum or source Plasma data Alkaline 46 - 116 U/L Normal No July 22 phosphata informati 2016 se on in 10:15 AM [Enzymati source c data activity/ volume] in Serum or Plasma Bilirubin 0.2 - 1.0 mg/dL Normal No July 22 .total informati 2016 [Mass/vol on in 10:15 AM ume] in source Serum or data Plasma Urea 7 - 18 mg/dL Normal No July 22 nitrogen informati 2016 [Mass/vol on in 10:15 AM ume] in source Serum or data Plasma Calcium 8.5 - mg/dL Normal No July 22 [Mass/vol 10.1 informati 2016 ume] in on in 10:15 AM Serum or source Plasma data Chloride 98 - 107 mmoL/L Normal No July 22 [Moles/vo informati 2016 lume] in on in 10:15 AM Serum or source Plasma data Carbon 21.0 - mmoL/L Normal No July 22 dioxide, 32.0 informati 2016 total on in 10:15 AM [Moles/vo source lume] in data Serum or Plasma Creatinin 0.55 - mg/dL Normal No July 22 e 1.02 inform2016 [Mass/vol on in 10:15 AM ume] in source Serum or data Plasma Creatinin 50 - 200 ML/MIN Normal No July 22 e renal inform2016 clearance on in 10:15 AM source predicted data by Cockcroft -Gault formula Estimated 59- ML/MIN No REFERENCE July 22 informati RANGE: 2017 glomerula on in >60 10:15 AM r source ML/MIN/1. filtratio data 73 SQUARE n rate METERSIf (GF this patient is -A merican, then multiply theresult by 1.210. Globulin 1.3 - 3.2 gm/dL High No July 22 [Mass/vol informati 2016 ume] in on in 10:15 AM Serum source data Glucose 74 - 106 mg/dL Normal No July 22 [Mass/vol informati 2016 ume] in on in 10:15 AM Serum or source Plasma data Potassium 3.5 - 5.1 mmoL/L Low No July 22 inform2016 [Moles/vo on in 10:15 AM lume] in source Serum or data Plasma Sodium 136 - 145 mmoL/L Normal No July 22 [Moles/vo informati 2016 lume] in on in 10:15 AM Serum or source Plasma data Aspartate 15 - 37 U/L Low No July 22 inform2016 aminotran on in 10:15 AM sferase source [Enzymati data c activity/ volume] in Serum or Plasma Alanine 12 - 78 U/L Normal No July 22 aminotran informati 2016 sferase on in 10:15 AM [Enzymati source c data activity/ volume] in Serum or Plasma Protein 6.4 - 8.2 gm/dL Normal No July 22 [Mass/vol informati 2016 ume] in on in 10:15 AM Serum or source Plasma data
--- OUTSIDE RECORDS SUMMARY | 2017-01-16 09:24 | External Medical Summary Rpt ---
Author Author CAROL Colunga, CAROL [employer] Address Unknown Phone Unavailable [...] opy Campylo NOT NOT No No No Florentino 2 bacter DETECTE DETECTE informa informa informa [...]
--- OUTSIDE RECORDS SUMMARY | 2017-01-16 09:24 | External Medical Summary Rpt | CCD ---
Author Author , CAROL Organization [employer] Address Unknown Phone [email or web address] Immunization Name Date Rout CVX Reac Dose Comm Prov Is Faci e tion ent ider Refu lity Give sed n Td 03-0 9 999 Hist H149 No H149 (melody 5-19 oric lt), 97 al Info adso rmat rbed ion - Sour ce Unsp ecif ied
[2017-01-16 09:40] LABS: ARTERIAL ABE 7.8 MMOL/L (-2.4-+2.3); ARTERIAL TCO2 34.7 MMOL/L (23-27); OXYGEN 2 LITER CANNULA
[2017-01-16 09:41] LABS: HEMOGLOBIN 12.7 g/dL (12.2-16.2); LYMPH # 2.7 K/mm3 (0.7-4.5); LYMPH % 23.5 % (10-50.0)
--- NOTE | 2017-01-16 09:53 | RADIOLOGY REPORT PS360 ---
CHEST-PORTABLE HISTORY: Wheezing and shortness of air, asthma, COPD, previous smoker WHEEZING ORDERING PHYSICIAN: Kalpesh Hill MD PATIENT AGE: 51 years COMPARISON: 08/02/2016 FINDINGS: The cardiomediastinal silhouette and pulmonary vascularity are within normal limits. There is hyperinflation with hyperlucency of the upper lobes consistent with COPD. Opacification is present in the right lower lobe suspicious for pneumonia. Focal opacity is noted in the left lower lobe at 18 mm and may be due to an area of pneumonia/atelectasis or developing nodule. Follow-up chest x-ray suggested after appropriate treatment for pneumonia.. No obvious effusion. There are healing bilateral rib fractures. IMPRESSION: 1. Right lower lobe pneumonia and/or atelectatic change. 2. Focal opacity left lower lobe which could be due to an area of atelectasis or infiltrate versus developing nodule. Follow-up recommended
[2017-01-16 10:01] LABS: BUN 5 mg/dL (7-18); GFR (ESTIMATED) 106 ML/MIN (59-)
--- NOTE | 2017-01-16 10:29 | Emergency Room Report ---
History of Present Illness Time Seen by [id number] Presenting Problem in Triage Pt arrived:Wheelchair Presenting Problem:PT C/O SOA THAT HAS GOTTEN INCREASINGLY WORSE SINCE 0500. 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 N Clinical Suspician of Infection? N Mental Status: 1 - Regular (Normal Baseline) Sepsis Risk:Severe Sepsis Risk Have you (or family members/close friends) recently traveled outside the [place]? N If Yes, where/when: Have you had exposure to infectious disease within the past month? N TB? Other? Specify: Source patient, RN notes reviewed, RN/MD Exam Limitations no limitations Comment This is a 51-year-old female patient presented emergency room with shortness of breath, productive cough, subjective fever since earlier this morning, gradually getting worse. Patient denies any recent travel or exposure to sick contacts. She is known with a long history of emphysema. ALLERGIES Coded Allergies: aspirin (Intermediate, I-HIVES 08/30/16) theophylline (Intermediate, FREAKS OUT 08/30/16) latex (Mild, I-ITCHING 08/30/16) clarithromycin (From BIAXIN) (NA-NAUSEA 08/30/16) Home Medications Active Scripts TIZANIDINE HCL (Zanaflex) 2 MG PO TID #90 CAP Ref 2 Prov: 08/31/15 Device (Walker, Rolling (2-Wheel)) 1 UNIT XX UD #1 Prov: 08/04/15 Reported Medications Montelukast Sodium 10 MG PO DAILY #30 Albuterol (Albuterol-Hfa Inhaler) 2 PUFF IH Q4HP PRN SHORTNESS OF AIR Loratadine (Claritin 10MG Tab) 10 MG PO DAILY Tramadol Hcl (Tramadol 50MG) 50 MG PO Q6HP PRN BACK PAIN Albuterol/Ipratropiu (Duoneb) 3 ML IH Q4HP PRN BREATHING Lorazepam (Ativan 2MG) 2 MG PO TIDP PRN ANXIETY Omeprazole (Omeprazole 40MG) 40 MG PO DAILY Azithromycin (Azithromycin 250MG TAB) 250 MG PO MWF History Medical History General CAD? No Angina: No [place]: No Hypertension? No Hyperlipidemia? No CHF? No DVT? No PE? No COPD? Yes Asthma? Yes Anemia? No GERD? Yes Gastric ulcers? No GI Bleed? No Hernia? No Thyroid Problems? No Hypothyroidism? No CVA? No Seizures? No Diabetes? No Renal Insuffiency? No End Stage Renal Disease? No UTI? No Stones? No BPH? No GB Disease: Yes Nephritic Syndrome? No Asplenia? No Hepatitis? No Sickle Cell Disease? No Arthritis? No Migraines? No Cataracts? No Glaucoma? No MRSA? No HIV? No TB? No Anxiety? Yes Depression? No Cancer? No More? No Immunization Hx DT/Tetanus Unknown Flu Refused Pneumonia N Surgical Hx Previous Surgery?Y GALLBLAD[facility] Hx LMP menopause Family History Family Hx Diabetes No CAD No Hypertension No Hyperlipidemia No Cancer No TB No Social History Smoking Hx Smoker: Former Smoker Tobacco: Yes Type Cigarettes Packs/day 2 1/2 - 3 Packs Alcohol Alcohol: No Review of Systems All Other Systems Reviewed and Negative Respiratory wheezing Physical Exam Vital Signs Vital Signs Date Time Temp Pulse Resp B/P Pulse O2 O2 Flow FiO2 Ox Delivery Rate 01/16 1051 82 18 123/75 99 01/16 0950 122 28 132/75 92 2 01/16 0915 86 01/16 0912 98.6 140 28 154/108 86 General Appearance normal appearance, WD/WN, mild distress Respiratory Status Yes: trachea midline, chest symmetrical, non tender chest. No: respiratory distress. Lung Sounds bilateral: wheezing. Cardiovascular normal exam, regular rate/rhythm, no peripheral edema, no gallop, no JVD, no murmur, no rub, normal peripheral pulses Gastrointestinal normal bowel sounds, normal exam, non tender, soft, no organomegaly Extremities non-tender, normal range of motion, normal inspection Neurologic alert, rest room attendant II-XII nml as tested, normal exam, oriented x 3 Mental status normal mood/affect Skin intact, normal color, warm/dry Medical Decision Making LABS/Meds/Orders Pt receiving controlled substance in ED? No Comment 10:30am-case d/w Dr Damico, advised of presentation and findings, agreeable with hospitalization. Care transferred to Dr. Damico at this time. I will write temporary admission orders per hospital protocol. Upon patient's arrival to the floor today unit nurse will contact PCP in order to obtain full inpatient admission orders. Results/Orders Laboratory Tests 01/16/17929: ABG pH 7.38, ABG pCO2 (Temp Corrct 56.9 H, ABG pO2 (Temp Correct 86.0, ABG HCO3 32.9 H, ABG Total CO2 34.7 H, ABG O2 Sat (Calculated) 96.3, ABG Base Excess 7.8 H, Mahesh Test N/A, Blood Gas Comments LEFT BRACHIAL 01/16/17919: Lactic Acid 1.5 01/16/17919: Sodium 143, Potassium 3.3 L, Chloride 102, Carbon Dioxide 37 H, BUN 5 L, Creatinine 0.6, Estimated Creat Clear 118, Estimated GFR (MDRD) 106, Glucose 107 H, Calcium 9.4, Total Bilirubin 0.3, AST 22, ALT 34, Alkaline Phosphatase 91, Creatine Kinase 46, CK-MB (CK-2) Rel Index 2.2, CK and CKMB Interp 1.0, Troponin I < 0.02, Total Protein 6.9, Albumin 3.7, Globulin 3.2, Albumin/Globulin Ratio 1.2, WBC 11.3 H, RBC 4.27, Hgb 12.7, Hct 38.8, MCV 90.7, RDW 12.6, Plt Count 272, MPV 8.0, Gran % 65.1, Gran # 7.3, Lymphocytes % 23.5, Monocytes % 5.3, Eosinophils % 5.4, Basophils % 0.7, Lymphocytes # 2.7, Monocytes # 0.6, Eosinophils # 0.6 H, Basophils # 0.1, PUBS MCHC 32.9, MCH 29.8 Current Medication Orders Sig/Ben Start time Last Medication Dose Route Stop Time Status Admin Levofloxacin/Dextrose 150 ML DAILY 01/17 0900 AC 01/18 IV 01/21 1030 0921 Montelukast Sodium 10 MG DAILY 01/17 0900 DC PO Albuterol/Ipratropium 3 ML Q4H6 01/16 1400 AC 01/18 INH 1001 Methylprednisolone 60 MG Q8 01/16 1300 AC 01/18 Sodium Succinate IV 0559 Nicotine 21 MG DAILYP PRN 01/16 1045 AC TD Loratadine 10 MG DAILY 01/16 1038 AC 01/18 PO 0921 Orders Procedure Date/time Status [id number] FAT/LO CHO/CHICHO 01/16 L Active Decision to admit 01/16 1035 Active RT Aerosol Treatment, Provide 01/16 0928 Active ARTERIAL BLOOD GAS REQUEST 01/16 09 Active OXYGEN PER NURSE 01/16 913 Active 12 LEAD EKG-ANKIT (INITIAL) 01/17 912 Active ELECTROCARDIOGRAM REQUEST 01/17 912 Active RT REQUEST DUONEB 01/17 912 Active IV SALINE LOCK 01/17 912 Active CULTURE, SPUTUM 01/17 912 Active CULTURE, BLOOD 01/17 912 Active LACTIC ACID 01/17 912 Complete CBC WITH AUTO DIFF 01/17 912 Complete CARDIAC ENZYMES 01/17 912 Complete CHEM 12 PROFILE 01/17 912 Complete ADMIT PATIENT 01/16 UNK Active PULSE OXIMETRY REQUEST 01/16 UNK Active OXYGEN REQUEST 01/16 UNK Active RT REQUEST DUONEB 01/16 UNK Active VITAL SIGNS 01/16 UNK Active PRELOAD SUPERVISOR 01/16 UNK Active POM NURSE ORQUIDEA HOSE ORDER 01/16 UNK Active CODE STATUS 01/16 UNK Active PATIENT ACTIVITY ORDER 01/16 UNK Active 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 of ischemic chgs, no ectopy, normal QRS, normal [place], no EKG for comparison, non-spec. ST/Twave chgs, ST elevation, ST depression, LBBB, RBBB, ectopy, abnormal Q waves XRAY/CT/US XRAY/CT/US XRAY chest XR interpretation by reviewed by me, discussed w/radiologist Xray Results abnormal Comment RLL infiltrate, COPD Departure Departure Time of Disposition 1039 Disposition Still a Patient Clinical Impression Primary Impression: RLL pneumonia Qualifiers: Pneumonia type: due to unspecified organism Qualified Code: J18.1 - Lobar pneumonia, unspecified organism Secondary Impressions: COPD exacerbation Condition STABLE ED Critical Care Critical Care No at 1013
--- NOTE | 2017-01-16 10:29 | Emergency Room Report ---
History of Present Illness Time Seen by [id number] Presenting Problem in Triage Pt arrived:Wheelchair Presenting Problem:PT C/O SOA THAT HAS GOTTEN INCREASINGLY WORSE SINCE 0500. 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 N Clinical Suspician of Infection? N Mental Status: 1 - Regular (Normal Baseline) Sepsis Risk:Severe Sepsis Risk Have you (or family members/close friends) recently traveled outside the [place]? N If Yes, where/when: Have you had exposure to infectious disease within the past month? N TB? Other? Specify: Source patient, RN notes reviewed, RN/MD Exam Limitations no limitations Comment This is a 51-year-old female patient presented emergency room with shortness of breath, productive cough, subjective fever since earlier this morning, gradually getting worse. Patient denies any recent travel or exposure to sick contacts. She is known with a long history of emphysema. ALLERGIES Coded Allergies: aspirin (Intermediate, I-HIVES 08/30/16) theophylline (Intermediate, FREAKS OUT 08/30/16) latex (Mild, I-ITCHING 08/30/16) clarithromycin (From BIAXIN) (NA-NAUSEA 08/30/16) Home Medications Active Scripts TIZANIDINE HCL (Zanaflex) 2 MG PO TID #90 CAP Ref 2 Prov: 08/31/15 Device (Walker, Rolling (2-Wheel)) 1 UNIT XX UD #1 Prov: 08/04/15 Reported Medications Montelukast Sodium 10 MG PO DAILY #30 Albuterol (Albuterol-Hfa Inhaler) 2 PUFF IH Q4HP PRN SHORTNESS OF AIR Loratadine (Claritin 10MG Tab) 10 MG PO DAILY Tramadol Hcl (Tramadol 50MG) 50 MG PO Q6HP PRN BACK PAIN Albuterol/Ipratropiu (Duoneb) 3 ML IH Q4HP PRN BREATHING Lorazepam (Ativan 2MG) 2 MG PO TIDP PRN ANXIETY Omeprazole (Omeprazole 40MG) 40 MG PO DAILY Azithromycin (Azithromycin 250MG TAB) 250 MG PO MWF History Medical History General CAD? No Angina: No [place]: No Hypertension? No Hyperlipidemia? No CHF? No DVT? No PE? No COPD? Yes Asthma? Yes Anemia? No GERD? Yes Gastric ulcers? No GI Bleed? No Hernia? No Thyroid Problems? No Hypothyroidism? No CVA? No Seizures? No Diabetes? No Renal Insuffiency? No End Stage Renal Disease? No UTI? No Stones? No BPH? No GB Disease: Yes Nephritic Syndrome? No Asplenia? No Hepatitis? No Sickle Cell Disease? No Arthritis? No Migraines? No Cataracts? No Glaucoma? No MRSA? No HIV? No TB? No Anxiety? Yes Depression? No Cancer? No More? No Immunization Hx DT/Tetanus Unknown Flu Refused Pneumonia N Surgical Hx Previous Surgery?Y GALLBLADDER [facility] Hx LMP menopause Family History Family Hx Diabetes No CAD No Hypertension No Hyperlipidemia No Cancer No TB No Social History Smoking Hx Smoker: Former Smoker Tobacco: Yes Type Cigarettes Packs/day 2 1/2 - 3 Packs Alcohol Alcohol: No Review of Systems All Other Systems Reviewed and Negative Respiratory wheezing Physical Exam Vital Signs Vital Signs Date Time Temp Pulse Resp B/P Pulse O2 O2 Flow FiO2 Ox Delivery Rate 01/16 1051 82 18 123/75 99 01/16 0950 122 28 132/75 92 2 01/16 0915 86 01/16 0912 98.6 140 28 154/108 86 General Appearance normal appearance, WD/WN, mild distress Respiratory Status Yes: trachea midline, chest symmetrical, non tender chest. No: respiratory distress. Lung Sounds bilateral: wheezing. 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 No Comment 10:30am-case d/w Dr Damico, advised of presentation and findings, agreeable with hospitalization. Care transferred to Dr. Damico at this time. I will write temporary admission orders per hospital protocol. Upon patient's arrival to the floor today unit nurse will contact PCP in order to obtain full inpatient admission orders. Results/Orders Laboratory Tests 01/16/17929: ABG pH 7.38, ABG pCO2 (Temp Corrct 56.9 H, ABG pO2 (Temp Correct 86.0, ABG HCO3 32.9 H, ABG Total CO2 34.7 H, ABG O2 Sat (Calculated) 96.3, ABG Base Excess 7.8 H, Mahesh Test N/A, Blood Gas Comments LEFT BRACHIAL 01/16/17919: Lactic Acid 1.5 01/16/17919: Sodium 143, Potassium 3.3 L, Chloride 102, Carbon Dioxide 37 H, BUN 5 L, Creatinine 0.6, Estimated Creat Clear 118, Estimated GFR (MDRD) 106, Glucose 107 H, Calcium 9.4, Total Bilirubin 0.3, AST 22, ALT 34, Alkaline Phosphatase 91, Creatine Kinase 46, CK-MB (CK-2) Rel Index 2.2, CK and CKMB Interp 1.0, Troponin I < 0.02, Total Protein 6.9, Albumin 3.7, Globulin 3.2, Albumin/Globulin Ratio 1.2, WBC 11.3 H, RBC 4.27, Hgb 12.7, Hct 38.8, MCV 90.7, RDW 12.6, Plt Count 272, MPV 8.0, Gran % 65.1, Gran # 7.3, Lymphocytes % 23.5, Monocytes % 5.3, Eosinophils % 5.4, Basophils % 0.7, Lymphocytes # 2.7, Monocytes # 0.6, Eosinophils # 0.6 H, Basophils # 0.1, PUBS MCHC 32.9, MCH 29.8 Current Medication Orders Sig/Ben Start time Last Medication Dose Route Stop Time Status Admin Levofloxacin/Dextrose 150 ML DAILY 01/17 0900 AC 01/18 IV 01/21 1030 0921 Montelukast Sodium 10 MG DAILY 01/17 0900 DC PO Albuterol/Ipratropium 3 ML Q4H6 01/16 1400 AC 01/18 INH 1001 Methylprednisolone 60 MG Q8 01/16 1300 AC 01/18 Sodium Succinate IV 0559 Nicotine 21 MG DAILYP PRN 01/16 1045 AC TD Loratadine 10 MG DAILY 01/16 1038 AC 01/18 PO 0921 Orders Procedure Date/time Status [id number] FAT/LO CHO/CHICHO 01/16 L Active Decision to admit 01/16 1035 Active RT Aerosol Treatment, Provide 01/16 0928 Active ARTERIAL BLOOD GAS REQUEST 01/16 09 Active OXYGEN PER NURSE 01/16 913 Active 12 LEAD EKG-ANKIT (INITIAL) 01/17 912 Active ELECTROCARDIOGRAM REQUEST 01/17 912 Active RT REQUEST DUONEB 01/17 912 Active IV SALINE LOCK 01/17 912 Active CULTURE, SPUTUM 01/17 912 Active CULTURE, BLOOD 01/17 912 Active LACTIC ACID 01/17 912 Complete CBC WITH AUTO DIFF 01/17 912 Complete CARDIAC ENZYMES 01/17 912 Complete CHEM 12 PROFILE 01/17 912 Complete ADMIT PATIENT 01/16 UNK Active PULSE OXIMETRY REQUEST 01/16 UNK Active OXYGEN REQUEST 01/16 UNK Active RT REQUEST DUONEB 01/16 UNK Active VITAL SIGNS 01/16 UNK Active 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 of ischemic chgs, no ectopy, normal QRS, normal [place], no EKG for comparison, non-spec. ST/Twave chgs, ST elevation, ST depression, LBBB, RBBB, ectopy, abnormal Q waves XRAY/CT/US XRAY/CT/US XRAY chest XR interpretation by reviewed by me, discussed w/radiologist Xray Results abnormal Comment RLL infiltrate, COPD Departure Departure Time of Disposition 1039 Disposition Still a Patient Clinical Impression Primary Impression: RLL pneumonia Qualifiers: Pneumonia type: due to unspecified organism Qualified Code: J18.1 - Lobar pneumonia, unspecified organism Secondary Impressions: COPD exacerbation Condition STABLE ED Critical Care Critical Care No at 1013
--- OUTSIDE RECORDS SUMMARY | 2017-01-16 10:38 | External Medical Summary Rpt | CCD ---
Author Author , CAROL MEDINA Address Unknown Phone [email or web address] Care Team Providers Care Senior Billing Consultant Name Role Phone Felicity Ackerman MD, Unavailable Unavailable Felicity Damico MD, Unavailable Unavailable Vinny Damico MD Purpose Continuity of Care Document - 10-30-2012 through 2016 Problems Code Diagnosis DOS Provider Status 305.1 305.1 03-07-2013 [place] TOBACCO USE [facility] 466.19 466.19 AC 03-07-2013 [place] [facility] Hospital ORG 491.21 491.21 03-07-2013 [facility] CHRONIC Hospital BRONCHITIS, W (ACUTE) EXACERBATIO N 300.00 300.00 10-30-2012 [place] ANXIETY [facility] STATE NOS Hospital 493.90 493.90 10-30-2012 [place] ASTHMA, [facility] UNSPECIFIED Hospital 496 496 CHR 10-30-2012 [place] AIRWAY [facility] Hospital NEC 786.09 786.09 10-30-2012 [place] RESPIRATORY [facility] ABNORM NEC Hospital J44.1 CHRONIC OBSTRUCTIVE PULMONARY [...] Ac ti MG ve TA BL ET CT 00 12 2 No ED 05 -3 [...] 5 ve MG /[address] 00 08 0 No ED 05 -2 [...] Order Detail nces retati t Range on Gas panel in Arterial blood (01-16-2017 09:30) Arteria N/A complet l 017 ed patency 09:30 Wrist artery --pre arteria l punctur e SOURCE LEFT complet 017 BRACHIA ed 09:30 L Differential panel, method unspecified - (08-02-2016 21:00) Anisocy 1+ complet tosis 017 ed [Presen 21:00 ce] in Blood LYMPH 9 % 10% - Low complet 017 50% ed 21:00 Platele NORMAL complet ts 017 ed [Presen 21:00 ce] in Blood by Light microsc opy Differential panel, method unspecified - (07-22-2016 10:15) Anisocy 1+ complet tosis 017 ed [Presen 10:15 [...] with AUTO DIFF (03-04-2013 07:40) WBC # 12-30-2 9.4 4.8-10. complet Bld 013 K/MM3 8 [...] 013 K/mm3 ed Bld 07:40 Auto Eosinop 03-04-2 0.0 0.0-0.4 complet hil # 013 K/mm3 ed Bld 07:40 Auto Basophi 03-04-2 0.0 0-0.2 complet ls # 013 K/MM3 ed Bld 07:40 Auto ARTERIAL BLOOD GAS (03-02-2013 08:52) ARTERIA 03-02-2 7.37 7.35-7. complet L PH 013 MMOL/L 45 ed 08:52 ARTERIA 2 69.5 35.0-45 complet L PCO2 013 MMHG .0 ed 08:52 ARTERIA 2 60.7 80-100 complet L PO2 013 MMHG ed 08:52 ARTERIA 39.1 22.0-26 complet L HCO3 013 MMOL/L .0 ed 08:52 ARTERIA 41.2 23-27 complet L TCO2 013 MMOL/L ed 08:52 Base 13.8 -2.4-+2 complet excess 013 MMOL/L .3 ed BldA-sC 08:52 nc ARTERIA 90.3 % 90-100 complet L O2 013 ed SAT 08:52 OXYGEN 34% complet 013 ed 08:52 Arteria 2 ACCEPTA complet l 013 BLE ed patency 08:52 Wrist a CBC with AUTO DIFF (02-27-2013 08:20) WBC # 02-27-2 9.6 4.8-10. complet Bld 013 K/MM3 8 ed Auto 08:20 WBC 02-27-2 9.5 complet nRBC 013 K/mm3 ed cor # 08:20 Bld Auto RBC # 02-27-2 4.26 4.2-5.4 complet Bld 013 M/mm3 ed Auto 08:20 Hgb 02-27- 13.1 12.2-16 complet Bld-mCn 013 g/dL .2 ed c 08:20 Hct Fr 40.0 % 37.0-47 complet Bld 013 .0 ed 08:20 MCV RBC 93.9 fl 82.2-97 complet 013 .8 ed 08:20 MCH RBC 12-25-2 30.6 pg 27-31.2 complet Qn 013 ed Auto 08:20 MEAN 1225-2 32.6 31.8-35 complet CORPUSC 013 g/dl .4 ed ULAR 08:20 HGB CONC RDW RBC 25-2 13.3 % 11.5-17 complet Auto 013 .5 ed 08:20 Platele 25-2 221 142-424 complet t Bld 013 K/mm3 ed Ql 08:20 Manual MEAN 02-27-2 8.3 fl 7.4-10. complet PLATELE 013 4 ed T 08:20 VOLUME Granulo 25-2 92.3 % 37.0-80 complet cytes 013 .0 ed Fr Bld 08:20 Auto LYMPH % -25-2 4.3 % 10-50.0 complet 013 ed 08:20 [...] Collier MD (ER) 3 04:45 3 06:25 [facility] Emergency LEEROY Ackerman MD (ER) 3 02:29 3 03:53 [facility]
--- OUTSIDE RECORDS SUMMARY | 2017-01-16 10:38 | External Medical Summary Rpt | CCD ---
Author Author , CAROL Organization CAROL Address Unknown Phone [email or web address] Immunization Name Date Rout CVX Reac Dose Comm Prov Is Faci e tion ent ider Refu lity Give sed n Td 03-0 9 999 Hist H149 No H149 (melody 5-19 oric lt), 97 al Info adso rmat rbed ion - Sour ce Unsp ecif ied
--- OUTSIDE RECORDS SUMMARY | 2017-01-16 10:38 | External Medical Summary Rpt | CCD ---
Author Author , CAROL MEDINA Address Unknown Phone [email or web address] Care Team Providers Care Retail Business Manager Name Role Phone Felicity Ackerman MD, Unavailable Unavailable Felicity Damico MD, Unavailable Unavailable Vinny Damico MD Purpose Continuity of Care Document - 10-30-2012 through 2016 Problems Code Diagnosis DOS Provider Status 305.1 305.1 03-07-2013 [place] TOBACCO USE [facility] 466.19 466.19 AC 03-07-2013 [place] [facility] ORG 491.21 491.21 03-07-2013 [facility] CHRONIC Hospital BRONCHITIS, W (ACUTE) EXACERBATIO N 300.00 300.00 10-30-2012 [place] ANXIETY [facility] STATE NOS Hospital 493.90 493.90 10-30-2012 [place] ASTHMA, [facility] UNSPECIFIED Hospital 496 496 CHR 10-30-2012 [place] AIRWAY [facility] Hospital NEC 786.09 786.09 10-30-2012 [place] RESPIRATORY [facility] ABNORM NEC Hospital J44.1 CHRONIC OBSTRUCTIVE PULMONARY [...] Ac ti MG ve TA BL ET [place] 00 12 2 No ED 05 -3 [...] 5 ve MG /[address] [place] 00 08 0 No ED 05 -2 [...] Ackerman MD (IN) 3 04:27 4 17:00 [facility] Emergency LEEROY Collier MD (ER) 3 04:45 3 06:25 [facility] Emergency LEEROY Ackerman MD (ER) 3 02:29 3 03:53 [facility]
--- OUTSIDE RECORDS SUMMARY | 2017-01-16 10:38 | External Medical Summary Rpt | CCD ---
Author Author , CAROL Organization CAROL Address Unknown Phone [email or web address] Immunization Name Date Rout CVX Reac Dose Comm Prov Is Faci e tion ent ider Refu lity Give sed n Td 03-0 9 999 Hist H149 No H149 (melody 5-19 oric lt), 97 al Info adso rmat rbed ion - Sour ce Unsp ecif ied
--- OUTSIDE RECORDS SUMMARY | 2017-01-16 10:39 | External Medical Summary Rpt ---
Author Author SERGIOHOLLY [place], [employer] Address Unknown Phone Unavailable Results Gas panel in Arterial blood Observa Value Referen Units Interpr Notes Date tion ce etation Range Base -2.4-+2.3 MMOL/L High No Jan 16 excess in informati 2016 9:30 Arterial on in AM blood source data Arteria N/A No No No No Jan 16 l informa informa informa informa 2017 patency tion in tion in tion in tion in 9:30 AM Wrist source source source source artery data data data data --pre arteria l punctur e Bicarbona 22.0 - MMOL/L High No Jan 16 te 26.0 informati 2016 9:30 [Moles/vo on in AM lume] in source Arterial data blood Oxygen No No No No Jan 16 content informati informati informati informati 2017 9:30 in on in on in on in on in AM Arterial source source source source blood data data data data Carbon 35.0 - MMHG High Jan 16 dioxide 45.0 2016 9:30 [Partial CRITICAL AM pressure] RESULTS in Arterial RESU blood LTS CALLED TO: ESTEFANÍA CANTU 01/16/17 0940 Carlos,Isatu shweta pH of 7.35 - MMOL/L Normal No Jan 16 Arterial 7.45 informati 2016 9:30 blood on in AM source data Oxygen 80 - 100 MMHG Normal No Jan 16 [Partial informati 2017 9:30 pressure] on in AM in source Arterial data blood Oxygen 90 - 100 % Normal No Jan 16 saturatio informati 2016 9:30 n.calcula on in AM steve from source oxygen data partial pressure in Arterial blood SOURCE LEFT No No No No Jan 16 BRACHIA informa informa informa informa 2017 L tion in tion in tion in tion in 9:30 AM source source source source data data data data Carbon 23 - 27 MMOL/L High No Jan 16 dioxide, informati 2016 9:30 total on in AM [Moles/vo source lume] in data Arterial blood Lactate [Moles/volume] in Blood Observa Value Referen Units Interpr Notes Date tion ce etation Range Lactate 0.4 - 2.0 mmol/L Normal No Jan 16 [Moles/vo ati 2016 9:20 lume] in on in AM Blood source data CBC W Auto Differential panel in Blood Observa Value Referen Units Interpr Notes Date tion ce etation Range Basophils 0 - 0.2 K/MM3 Normal No Jan 16 informati 2016 9:20 [#/volume on in AM ] in source Blood by data Automated count Basophils 0.1 - 2.0 % Normal No Jan 16 /100 informati 2017 9:20 leukocyte on in AM s in source Blood by data Automated count Eosinophi 0.0 - 0.4 K/mm3 High No Jan 16 ls informati 2016 9:20 [#/volume on in AM ] in source Blood by data Automated count Eosinophi 0.1 - % Normal No Jan 16 ls/100 12.0 informati 2016 9:20 leukocyte on in AM s in source Blood by data Automated count Granulocy 1.8 - 7.8 K/mm3 Normal No Jan 16 melinda informati 2017 9:20 [#/volume on in AM ] in source Blood by data Automated count Granulocy 37.0 - % Normal No Jan 16 melinda/100 80.0 informati 2016 9:20 leukocyte on in AM s in source Blood by data Automated count Hematocri 37.0 - % Normal Jan 16 t [Volume 47.0 informati 2016 9:20 on in AM Fraction] source of Blood data Hemoglobi 12.2 - g/dL Normal No Jan 16 n 16.2 informati 2016 9:20 [Mass/vol on in AM ume] in source Blood data Lymphocyt 0.7 - 4.5 K/mm3 Normal No Jan 16 es informati 2016 9:20 [#/volume on in AM ] in source Unspecifi data ed specimen by Automated count Lymphocyt 10 - 50.0 % Normal No Jan 16 es informati 2016 9:20 [#/volume on in AM ] in source Unspecifi data ed specimen by Automated count Erythrocy 27 - 31.2 pg Normal No Jan 16 te mean informati 2016 9:20 corpuscul on in AM ar source hemoglobi data n [Entitic mass] Erythrocy 31.8 - g/dl Normal No Jan 16 te mean 35.4 informati 2016 9:20 corpuscul on in AM ar source hemoglobi data n concentra tion [Mass/vol ume] by Automated count Erythrocy 82.2 - fl Normal No Jan 16 te mean 97.8 informati 2016 9:20 corpuscul on in AM ar volume source [Entitic data volume] by Automated count Monocytes 0.1 - 1.0 K/mm3 Normal No Jan 16 informati 2016 9:20 [#/volume on in AM ] in source Blood by data Automated count Monocytes 1.7 - 9.3 % Normal No Jan 16 /100 informati 2016 9:20 leukocyte on in AM s in source Blood by data Automated count Platelet 7.4 - fl Normal No Jan 16 mean 10.4 informati 2016 9:20 volume on in AM [Entitic source volume] data in Blood by Automated count Platelets 142 - 424 K/mm3 Normal No Jan 16 inform2016 9:20 [#/volume on in AM ] in source Blood data Erythrocy 4.2 - 5.4 M/mm3 Normal No Jan 16 melinda informati 2016 9:20 [#/volume on in AM ] in source Amniotic data fluid Erythrocy 11.5 - % Normal No Jan 16 te 17.5 inform2016 9:20 distribut on in AM ion width source [Entitic data volume] by Automated count Leukocyte 4.8 - K/MM3 High No Jan 16 s 10.8 informati 2016 9:20 [#/volume on in AM ] in source Blood data DIARRHEA PANEL,PCR Observa Value Referen Units Interpr Notes Date tion ce etation Range Adenovi NOT NOT No No No Florentino 2 getachew DETECTE DETECTE informa informa informa 2017 40+41 D tion in tion in tion in 8:00 AM Ag source source source [Presen data data data ce] in Stool Aeromon NOT NOT No No No Florentino 2 as DETECTE DETECTE informa informa informa 2017 salmoni D tion in tion in tion [...] 2 bacter DETECTE DETECTE informa informa informa 2017 sp Ab D tion in tion in [...] 2 ora DETECTE DETECTE informa informa informa 2016 cayetan D tion in tion in tion [...] us Ag DETECTE DETECTE informa informa informa 2017 [Presen [...] lla sp DETECTE DETECTE informa informa informa 2016 DNA D tion in tion in tion in 8:00 AM [Identi source source source fier] data data data in Unspeci fied specime n by Probe & target amplifi cation method Caliciv NOT NOT No No No Florentino 2 irus DETECTE DETECTE informa informa informa 2016 [Identi [...] 2 cholera DETECTE DETECTE informa informa informa 2016 e DNA D tion in tion in [...] 2 sp DETECTE DETECTE informa informa informa 2016 identif D tion in tion in tion in 8:00 AM ied in source source source Stool data data data by Namita m specifi c culture CBC W Auto Differential panel in Blood Observa Value Referen Units Interpr Notes Date tion ce etation Range Basophils 0 - 0.2 K/MM3 Normal No August 03 inform2016 6:10 [#/volume on in AM ] in source Blood by data Automated count Basophils 0.1 - 2.0 % Normal No August 03 informati 2017 6:10 leukocyte [...] K/mm3 Normal No August 03 es informati 2017 6:10 [#/volume on in AM ] in source Unspecifi data ed specimen by Automated count Lymphocyt 10 - 50.0 % Low No August 03 es informati 2016 6:10 [#/volume on in AM ] in source Unspecifi data ed specimen by Automated count Erythrocy 27 - 31.2 pg Normal No August 03 te mean informati 2016 6:10 corpuscul on in AM [...] 1.0 K/mm3 Normal No August 03 informati 2017 6:10 [#/volume on in AM ] in source Blood by data Automated count Monocytes 1.7 - 9.3 % Low No August 03 /100 informati 2017 6:10 leukocyte on in AM s in source Blood by data Automated count Platelet 7.4 - fl Low No August 03 mean 10.4 informati 2017 6:10 volume on in AM [Entitic source volume] data in Blood by Automated count Platelets 142 - 424 K/mm3 Normal No August 03 informati 2016 6:10 [#/volume on in AM ] in source Blood data Erythrocy 4.2 - 5.4 M/mm3 Normal No August 03 melinda informati 2016 6:10 [#/volume on in AM ] in source Amniotic data fluid Erythrocy 11.5 - % Normal No August 03 te 17.5 informati 2016 6:10 distribut on in AM ion width [...] - 0.2 K/MM3 Normal No August 02 inform2016 9:00 [#/volume on in PM ] in source Blood by data Automated count Basophils 0.1 - 2.0 % Normal No August 02 / informati 2016 9:00 leukocyte on in PM [...] Normal No August 02 te mean 97.8 ati 2016 9:00 corpuscul on in PM ar volume source [Entitic data volume] by Automated count Monocytes 0.1 - 1.0 K/mm3 Normal No August 022016 9:00 [#/volume on in PM ] in [...] 142 - 424 K/mm3 Normal No August 022016 9:00 [#/volume on in PM ] in source Blood data Erythrocy 4.2 - 5.4 M/mm3 Normal No August 02 melinda ati 2016 9:00 [#/volume on in PM ] in source Amniotic data fluid Erythrocy 11.5 - % Normal August 02 te 17.5 ati 2016 9:00 distribut on in PM ion width source [Entitic data volume] by Automated count Leukocyte 4.8 - K/MM3 High No August 02 s 10.8 ati 2016 9:00 [#/volume on in PM ] [...] 10 - 50 % Low No August 022016 tion in 9:00 PM source data Platele NORMAL No No No No August 02 ts informa informa informa informa 2016 [Presen tion in tion in tion in tion in 9:00 PM ce] in source source source source Blood data data data data by Light microsc opy Neutrophi 42 - 76 % High No August 02 ls ati 2016 9:00 [#/volume on in PM ] in source Blood by data Automated count Cells No #CELLS No No August 02 Counted informati inform2016 9:00 Total [#] on in on in [...] Interpr Notes Date ti ce etation Range Lactate 0.4 - 2.0 MMOL/L High An August 02 [Moles/vo elevated 2016 1:06 lume] in Lactic AM Serum or Acid is Plasma suggestiv e of sepsis and shouldbe repeated within 6 hours of initial testing. CBC W Auto Differential panel in Blood Observa Value Referen Units Interpr Notes Date ti ce etation Range Basophils 0 - 0.2 K/MM3 Normal No July 222016 [#/volume on in 10:15 AM ] in source Blood by data Automated count Basophils 0.1 - 2.0 % Normal No July 222016 leukocyte on in 10:15 AM s in source Blood by data Automated count Eosinophi 0.0 - 0.4 K/mm3 Normal No July 22 ls 2016 [#/volume on in 10:15 AM ] in source Blood by data Automated count Eosinophi 0.1 - % Normal No July 22 ls/100 12.0 2016 leukocyte on in 10:15 AM s in source Blood by data Automated count Granulocy 1.8 - 7.8 K/mm3 High No July 22 melinda 2016 [#/volume on in 10:15 AM ] in source Blood by data Automated count Granulocy 37.0 - % Normal No July 22 melinda/100 80.0 2016 leukocyte on in 10:15 AM s in source Blood by data Automated count Hematocri 37.0 - % Normal No July 22 t [Volume 47.0 informati 2016 on in 10:15 AM Fraction] source of Blood data Hemoglobi 12.2 - g/dL Normal No July 22 n 16.2 informati 2016 [Mass/vol on in 10:15 AM ume] in source Blood data Lymphocyt 0.7 - 4.5 K/mm3 Normal No July 22 es inform2016 [#/volume on in 10:15 AM ] in source Unspecifi data ed specimen by Automated count Lymphocyt 10 - 50.0 % Normal No July 22 es inform2016 [#/volume on in 10:15 AM ] in source Unspecifi data ed specimen by Automated count Erythrocy 27 - 31.2 pg Normal No July 22 te mean 2016 corpuscul on in 10:15 AM ar source hemoglobi data n [Entitic mass] Erythrocy 31.8 - g/dl Normal No July 22 te mean 35.4 2016 corpuscul on in 10:15 AM ar source hemoglobi data n concentra tion [Mass/vol ume] by Automated count Erythrocy 82.2 - fl Normal No July 22 te mean 97.8 inform2016 corpuscul on in 10:15 AM ar volume source [Entitic data volume] by Automated count Monocytes 0.1 - 1.0 K/mm3 Normal No July 222016 [#/volume on in 10:15 AM ] in source Blood by data Automated count Monocytes 1.7 - 9.3 % Normal No July 22 /100 2016 leukocyte on in 10:15 AM s in source Blood by data Automated count Platelet 7.4 - fl Low No July 22 mean 10.4 2016 volume on in 10:15 AM [Entitic source volume] data in Blood by Automated count Platelets 142 - 424 K/mm3 No No July 22 informati informati 2016 [#/volume on in on in 10:15 AM ] in source source Blood data data Erythrocy 4.2 - 5.4 M/mm3 Normal No July 22 melinda informati 2016 [#/volume on in 10:15 AM ] in source Amniotic data fluid Erythrocy 11.5 - % Normal No July 22 te 17.5 2016 distribut on in 10:15 AM ion width source [Entitic data volume] by Automated count Leukocyte 4.8 - K/MM3 High No July 22 s 10.8 informati 2016 [#/volume on in 10:15 AM ] in source Blood data Differential panel, method unspecified - Observa Value Referen Units Interpr Notes Date ti ce etation Range Anisocy 1+ No No No No July 22 tosis informa informa informa informa 2016 [Presen tion in tion in tion in tion in 10:15 ce] in source source source source AM Blood data data data data LYMPH 23 10 - 50 % Normal No July 22 inform2016 tion in 10:15 source AM data Monocytes 2 - 9 % Normal No July 22 /100 informati 2016 leukocyte on in 10:15 AM s [...] 76 % Normal No July 22 ls ati 2016 [#/volume on in 10:15 AM ] in source Blood by data Automated count Stomato 1+ No No No No July 22 cytes informa informa informa informa 2016 [Presen tion [...] Interpr Notes Date ti ce etation Range Lactate 0.4 - 2.0 [...] 116 U/L Normal No July 22 phosphata inform2016 se on in 10:15 AM [Enzymati source [...] mg/dL Normal No July 22 e 1.02 informati 2016 [Mass/vol on in 10:15 AM [...] - 5.1 mmoL/L Low No July 22 informati 2016 [Moles/vo on in 10:15 AM lume] in [...] gm/dL Normal No July 22 [Mass/vol informati 2017 ume] in on in 10:15 AM Serum or source Plasma data
--- OUTSIDE RECORDS SUMMARY | 2017-01-16 10:39 | External Medical Summary Rpt ---
Author Author SERGIOHOLLY [place], [employer] Address Unknown Phone Unavailable Results Gas [...]
[2017-01-16] MEDS ORDERED: MONTELUKAST SOD10 MG PO (10:57)
--- NOTE | 2017-01-16 13:38 | PHARMACY CLINIC NOTE ---
Patient Demographics Patient Demographics Admission date: 01/16/17 Date: 01/16/17 Time: 1338 Allergies Coded Allergies: aspirin (Intermediate, I-HIVES 08/30/16) theophylline (Intermediate, FREAKS OUT 08/30/16) latex (Mild, I-ITCHING 08/30/16) clarithromycin (From BIAXIN) (NA-NAUSEA 08/30/16) HEIGHT- FT: 5 IN: 0.00 K.504 VTE General Information Labs: Laboratory Tests 01/16 0920 Hematology Hgb (12.2 - 16.2 g/dL) 12.7 Hct (37.0 - 47.0 %) 38.8 Plt Count (142 - 424 K/mm3) 272 Disclaimer The following section includes nursing documentation that has been pulled in for pharmacy review. VTE prophylaxis [id number] VTE prophylaxis ordered? Yes Type of prophylaxis/treatment: ORQUIDEA at 2766
--- NOTE | 2017-01-16 17:28 | HISTORY AND PHYSICAL REPORT ---
Demographics: Admit date: 01/16/17 Chief complaint: Shortness of breath PRIMARY DIAGNOSIS: COPD EXACERBATION Allergies: Coded Allergies: aspirin (Intermediate, I-HIVES 08/30/16) theophylline (Intermediate, FREAKS OUT 08/30/16) latex (Mild, I-ITCHING 08/30/16) clarithromycin (From BIAXIN) (NA-NAUSEA 08/30/16) History of present illness: History of present illness: 51-year-old female with severe chronic obstructive pulmonary disease presented to the emergency department after 2 days of episodes of headaches with associated shortness of breath. 24 hours prior to the ER visit patient claims she had a cough that was productive of green sputum. She did not have any fevers or chills. She awoke this morning with similar symptoms of headache and cough with increasing shortness of breath that did not respond to home duo nebs and she presented to the emergency department. In the ER workup revealed a tachypneic female with expiratory wheezes. She had decreased pO2 on blood casts. Chest x-ray was concerning for pneumonia. Patient was given Levaquin and admitted on steroids and aerosols. At the time of interview patient feels somewhat improved although mildly dyspneic with any activity Past medical history: Family HX Family Hx Insignificant No Diabetes No CAD No Hypertension No Hyperlipidemia No Cancer No TB No Immunization HX DT/Tetanus Unknown Flu Refused Pneumonia Refuses TB Test in last year No General CAD? No Angina: No [place]: No Hypertension? No Hyperlipidemia? No CHF? No DVT? No PE? No COPD? Yes Asthma? Yes Anemia? No GERD? Yes Gastric ulcers? No GI Bleed? No Hernia? No Thyroid Problems? No Hypothyroidism? No CVA? No Seizures? No Diabetes? No Renal Insuffiency? No UTI? No Stones? No BPH? No GB Disease: Yes Nephritic Syndrome? No Asplenia? No Hepatitis? No Sickle Cell Disease? No Arthritis? No Migraines? No Cataracts? No Glaucoma? No MRSA? No HIV? No TB? No Anxiety? Yes Depression? No Cancer? No More? No Past Surgical HX Previous Surgery?Y GALLBLADDER CARPAL TUNNEL EYE SURGERY Current home meds: Active Scripts TIZANIDINE HCL (Zanaflex) 2 MG PO TID #90 CAP Ref 2 Prov: 08/31/15 Device (Walker, Rolling (2-Wheel)) 1 UNIT XX UD #1 Prov: 08/04/15 Reported Medications Montelukast Sodium 10 MG PO DAILY #30 Loratadine (Claritin 10MG Tab) 10 MG PO DAILY Tramadol Hcl (Tramadol 50MG) 50 MG PO Q6HP PRN BACK PAIN Albuterol/Ipratropiu (Duoneb) 3 ML IH Q4HP PRN BREATHING Albuterol (Albuterol-Hfa Inhaler) 1 PUFF IH Q4HP PRN SOA Lorazepam (Ativan 2MG) 2 MG PO TIDP PRN ANXIETY Omeprazole (Omeprazole 40MG) 40 MG PO DAILY Azithromycin (Azithromycin 250MG TAB) 250 MG PO MWF Social Hx: Smoking HX Tobacco Yes Type Cigarettes Packs/day 2 1/2 - 3 PACKS Are you/the child exposed to second-hand smoke: No Alcohol Alcohol: No Hx of Drug Use Drug Use? No Review of systems: Constitutional No: chills, fever. Respiratory see HPI. Cardiovascular No chest pain, No edema, No palpitations Gastrointestinal/Abdominal no symptoms reported Genitourinary no symptoms reported. Musculoskeletal no symptoms reported. Neurological Yes: no symptoms reported. Exam: Lab data for last 24 hours: Laboratory Tests 01/16/17 0930: ABG pH 7.38, ABG pCO2 (Temp Corrct 56.9 H, ABG pO2 (Temp Correct 86.0, ABG HCO3 32.9 H, ABG Total CO2 34.7 H, ABG O2 Sat (Calculated) 96.3, ABG Base Excess 7.8 H, Mahesh Test N/A, Blood Gas Comments LEFT BRACHIAL 01/16/17919: Lactic Acid 1.5 01/16/17919: Sodium 143, Potassium 3.3 L, Chloride 102, Carbon Dioxide 37 H, BUN 5 L, Creatinine 0.6, Estimated Creat Clear 118, Estimated GFR (MDRD) 106, Glucose 107 H, Calcium 9.4, Total Bilirubin 0.3, AST 22, ALT 34, Alkaline Phosphatase 91, Creatine Kinase 46, CK-MB (CK-2) Rel Index 2.2, CK and CKMB Interp 1.0, Troponin I < 0.02, Total Protein 6.9, Albumin 3.7, Globulin 3.2, Albumin/Globulin Ratio 1.2, WBC 11.3 H, RBC 4.27, Hgb 12.7, Hct 38.8, MCV 90.7, RDW 12.6, Plt Count 272, MPV 8.0, Gran % 65.1, Gran # 7.3, Lymphocytes % 23.5, Monocytes % 5.3, Eosinophils % 5.4, Basophils % 0.7, Lymphocytes # 2.7, Monocytes # 0.6, Eosinophils # 0.6 H, Basophils # 0.1, PUBS MCHC 32.9, MCH 29.8 Microbiology 01/17 920 BLOOD: Anaerobic Blood Culture - RECD 01/17 920 BLOOD: Aerobic Blood Culture - RECD 01/17 920 BLOOD: Anaerobic Blood Culture - RECD 01/17 920 BLOOD: Aerobic Blood Culture - RECD 01/17 912 SPUTUM: Sputum Culture - ORD 01/17 912 SPUTUM: Gram Stain - ORD Admission vital signs: 1ST Vital Signs Result Date Time Pulse Ox 86 01/17 912 B/P 154/108 01/17 912 Temp 98.6 01/17 912 Pulse 140 01/17 912 Resp 28 01/17 912 O2 Flow Rate 2 01/16 950 O2 Delivery OXYGEN 01/16 1221 Exam General appearance: awake, no acute distress Eyes: anicteric Neck: no carotid bruit, no JVD Cardiovascular: regular rate & rhythm Respiratory: distant breath sounds with faint expiratory wheezes throughout all lung moreau ABD: soft, no tenderness Extremities: moves all Plan: Problem List 1. COPD with acute exacerbation Plan: Continue IV Solu-Medrol, duo nebs, IV Levaquin. Await sputum culture. Repeat PA and lateral chest x-ray in the morning for more definitive evaluation of possible pneumonia at 6549
[2017-01-17] VITALS (7 sets, daily range): BP systolic 98–138; BP diastolic 63–78
--- NOTE | 2017-01-17 06:41 | RADIOLOGY REPORT PS360 ---
CHEST(2 VIEWS-NOT PORTABLE) HISTORY: Follow-up pneumonia f/u possible pneumnoia ORDERING PHYSICIAN: Vinny Damico MD PATIENT AGE: 51 years COMPARISON: 01/16/2017 FINDINGS: The cardiomediastinal silhouette and pulmonary vascularity are within normal limits. Right middle lobe pneumonia has shown some improvement. Left lower lobe airspace disease has also improved and may be due to atelectatic change as opposed to pneumonia.. No acute bony abnormalities. No obvious effusions. COPD. IMPRESSION: Slight improvement in the right middle lobe pneumonia and left lower lobe atelectasis and/or infiltrate
--- NOTE | 2017-01-17 07:09 | ACUTE CARE PROGRESS NOTE (QUA) ---
Progress Notes Subjective Date 01/17/17 Time 0706 Note Patient reports dyspnea at rest and on exertion overnight. Dyspnea at rest was somewhat worsened by her anxiety. Her cough is loosening but has not become productive. Patient appears comfortable in bed. Lungs have prominent expiratory wheezes. Heart has regular rate and rhythm. Chest x-ray is documented. No change in medical care. Await for patient to respond. Objective Findings Last VS-Temp:98.0 B/P:135/78 Pulse:117 Resp:20 SaO2:90 OXYGEN Last weight lbs:140 oz:0 K.504 Method:Bed Scales Assessment/Plan Problem List 1. COPD with acute exacerbation Patient condition Stable This inpt stay is expected to cross 2 MNs from start of care Yes at 0708
[2017-01-18] VITALS (7 sets, daily range): BP systolic 109–142; BP diastolic 66–93
--- NOTE | 2017-01-18 08:14 | ACUTE CARE PROGRESS NOTE (QUA) ---
Progress Notes Subjective Date 01/18/17 Time 0813 Note Patient believes she's feeling a little bit better today. She still gets quite short of breath with ambulation even to the bathroom. Patient appears comfortable while sitting up in bed with nasal cannula in place. Lungs continued to have loud expiratory wheezes. Heart has a regular rate and rhythm at this time. Abdomen is soft. Continue steroids, aerosols, antibiotics. Add a gram of magnesium to see if this can help with bronchospasm Objective Findings Last VS-Temp:98.3 B/P:118/66 Pulse:105 Resp:20 SaO2:95 OXYGEN Last weight lbs:140 oz:0 K.504 Method:Bed Scales Assessment/Plan Problem List 1. COPD with acute exacerbation Patient condition Stable This inpt stay is expected to cross 2 MNs from start of care Yes at 0814
[2017-01-19] VITALS: BP 125/69
[2017-01-19 04:00] VITALS: BP 117/56
--- NOTE | 2017-01-19 07:29 | ACUTE CARE PROGRESS NOTE (QUA) ---
Progress Notes Subjective Date 01/19/17 Time 0727 Note Patient continues to have dyspnea with light exertion such as walking 5-6 feet to the bedside commode or to the sink. Cough is primarily nonproductive. She gets some benefit from 1 g of magnesium without side effects of generalized weakness. She is resting comfortably in bed with nasal cannula in place. Lungs have fair aeration with continued expiratory wheezes although I would say slight improvement since yesterday. Heart has regular rate and rhythm. Continue current care. We will try 1 g of magnesium twice a day. Encouraged patient to ambulate Objective Findings Microbiology 01/18 1015 SPUTUM: Sputum Culture - RES 01/18 101 SPUTUM: Gram Stain - RES Last VS-Temp:98.3 B/P:117/56 Pulse:109 Resp:22 SaO2:93 OXYGEN Last weight lbs:140 oz:0 K.504 Method:Bed Scales Assessment/Plan Problem List 1. COPD with acute exacerbation 2. Pneumonia Patient condition Stable Plan: continue current care This inpt stay is expected to cross 2 MNs from start of care Yes at 0750
[2017-01-19 08:00] VITALS: BP 127/77
[2017-01-19 08:30] VITALS: BP 127/77
[2017-01-19 16:17] VITALS: BP 124/71
[2017-01-19 20:40] VITALS: BP 109/72
[2017-01-20 04:37] VITALS: BP 129/94
--- NOTE | 2017-01-20 07:24 | ACUTE CARE PROGRESS NOTE (QUA) ---
Progress Notes Subjective Date 01/20/17 Time 0723 Note Patient reports some improvement and breathlessness but she still gets winded walking from bed to bathroom. She continues to have cough is primarily nonproductive. Vital signs reviewed. Lungs have slightly improved aeration with less wheezing today. Heart has regular rate and rhythm. Give additional magnesium sulfate intravenously today. Continue IV steroids and aerosols. Anticipate discharge tomorrow Assessment/Plan Problem List 1. COPD with acute exacerbation 2. Pneumonia Patient condition Improving Plan: continue current care This inpt stay is expected to cross 2 MNs from start of care Yes at 0724
--- NOTE | 2017-01-20 07:37 | ACUTE CARE PROGRESS NOTE (QUA) ---
Progress Notes Subjective Date 01/20/17 Time 0736 Assessment/Plan Problem List 1. COPD with acute exacerbation 2. Pneumonia This inpt stay is expected to cross 2 MNs from start of care Yes Antibiotic Stewardship (2) Current Culture Results Microbiology 01/18 1015 SPUTUM: Sputum Culture - COMP 01/18 1015 SPUTUM: Gram Stain - COMP 01/17 920 BLOOD: Anaerobic Blood Culture - RES 01/17 920 BLOOD: Aerobic Blood Culture - RES Infxn that will respond? Yes Right drug,dose,and route? Yes (EMPIRIC CHOICE APPROPRIATE) at 0738
[2017-01-20 08:00] VITALS: BP 116/57
[2017-01-20 10:21] VITALS: BP 116/57
[2017-01-20 19:52] VITALS: BP 109/74
[2017-01-20 20:50] VITALS: BP 109/74
[2017-01-21 04:00] VITALS: BP 104/67
[2017-01-21] MEDS ORDERED: PREDNISONE 20MG20 MG PO (07:52)
--- NOTE | 2017-01-21 07:52 | Discharge Summary ---
Demographics Admit date: 01/16/17 Discharge date: 01/21/17 Discharge diagnoses Problem List 1. COPD with acute exacerbation 2. Pneumonia History of present illness History of present illness 51-year-old female with severe chronic obstructive pulmonary disease presented to the emergency department after 2 days of episodes of headaches with associated shortness of breath. 24 hours prior to the ER visit patient claims she had a cough that was productive of green sputum. She did not have any fevers or chills. She awoke this morning with similar symptoms of headache and cough with increasing shortness of breath that did not respond to home duo nebs and she presented to the emergency department. In the ER workup revealed a tachypneic female with expiratory wheezes. She had decreased pO2 on blood casts. Chest x-ray was concerning for pneumonia. Patient was given Levaquin and admitted on steroids and aerosols. At the time of interview patient feels somewhat improved although mildly dyspneic with any activity. Patient was admitted and placed on Rocephin, azithromycin, IV Solu-Medrol, duo nebs. Initial chest x-ray showed questionable pneumonia. Follow-up PA and lateral chest x-ray the following day was still suggestive of a small pneumonia so patient was continued on antibiotics or hospitalization. After 48 hours of treatment patient had shown only minimal improvement. She reminded me that she had responded to intravenous magnesium sulfate at prior admission and so the patient was given 1 g every 12 hours for the next 3 days. This had significant impact on patient's bronchospasm. Patient remained dyspneic with light exertion and was provided a bedside commode. She showed gradual improvement each day once magnesium sulfate therapy was initiated. On the the patient's lungs were mostly clear with occasional end expiratory wheeze. Heart had a regular rate and rhythm. Patient was discharged home and will follow-up in the office in week. Patient will need to use oxygen 24 hours a day due to persistent hypoxia with O2 sat of 88 percent the day prior to discharge. Discharge condition stable. Medications Medications: Discharge meds are as noted. Follow up Follow up in office in: one week with: Maureen Sotelo APRN at [id number]
[2017-01-21 07:54] VITALS: BP 116/78
[2017-01-21 09:38] VITALS: BP 116/78
[2017-02-06] MEDS ORDERED: SERTRALINE25 MG PO (12:00)
== END 2017-01-21 09:55 | disposition home or self-care (01) | DRG 190 ==
LOC: ER 09:08 → 2ND 10:34
PROVIDERS: Emergency Medicine
DX: J44.0 Chronic obstructive pulmonary disease with (acute) lower respiratory infection (principal); J18.9 Pneumonia, unspecified organism; Z99.81 Dependence on supplemental oxygen; J44.1 Chronic obstructive pulmonary disease with (acute) exacerbation; Z72.0 Tobacco use
CPT/HCPCS: J1956